=== PATIENT | female | born 1950 | race Caucasian/White ===

== ENCOUNTER 2022-09-01 16:55 | Emergency (ER) | payer MEDICARE, OTHER ==
[2022-09-01] MEDS ORDERED: Zofran 4 MG/2 ML VIAL IV ONE (17:12)
[2022-09-01] MEDS ORDERED: Sodium Chloride 0.9% 1000 ML 1,000 ML IV STA (17:12)
[2022-09-01] MEDS ORDERED: TYLENOL 325 MG PO STA (17:12)
--- NOTE | 2022-09-01 17:43 | ERPHSYRPT ---
- History of Present Illness Time Seen by Provider: 09/01/22 17:41 Source: patient, family Exam Limitations: no limitations Patient Subjective Stated Complaint: pt here for back and abd pain, chills and nausea. she is currently being treated for UTI . pt is a poor historian Triage Nursing Assessment: pt alert, resp easy, skin w/d/p, abd soft, Physician History: Patient is 72-year-old female with significant past medical history of recurrent urinary tract infection hyperlipidemia started having back pain fever chills nausea and vomiting for last 1 to 2 days. Patient has been recently being treated for urinary tract infection. Patient symptoms got worse so her family brought her into the emergency room. Patient denies any chest pain shortness of breath. Timing/Duration: day(s) (2-3 days) Severity: moderate Associated Symptoms: nausea, vomiting, abdominal pain Allergies/Adverse Reactions: VITAMIN K+ INJECTION Allergy (Mild, Uncoded 09/01/22 17:15) Swelling of Joints Home Medications: Fluoxetine HCl 20 mg [Prozac 20 MG] 20 mg PO BID 06/05/13 [History] Cholestyramine/Aspartame [Cholestyramine Light Packet] 4 gm PO DAILY 09/01/22 [History] Levothyroxine Sodium 100 Mcg [Synthroid 100 Mcg] 80 mcg PO DAILY 09/01/22 [History] Hx Tetanus, Diphtheria Vaccination/Date Given: No Hx Influenza Vaccination/Date Given: No Hx Pneumococcal Vaccination/Date Given: No Immunizations Up to Date: Yes Travel Risk - International Travel Have you traveled outside of the country in past 3 weeks: No - Coronavirus Screening Are you exhibiting any of the following symptoms?: No - Vaccine Status Have you recieved a Covid-19 vaccination: Yes Project Consultant: Moderna - Vaccination Dates Date of 2cond Vaccination (if applicable): 2020 - Review of Systems Constitutional: No Fever, No Chills Eyes: No Symptoms Ears, Nose, & Throat: No Symptoms Respiratory: No Cough, No Dyspnea Cardiac: No Chest Pain, No Edema, No Syncope Abdominal/Gastrointestinal: Abdominal Pain, Nausea, Vomiting, No Diarrhea Genitourinary Symptoms: Dysuria, Urgency Musculoskeletal: No Back Pain, No Neck Pain Skin: No Rash Neurological: No Dizziness, No Focal Weakness, No Sensory Changes Psychological: No Symptoms Endocrine: No Symptoms All Other Systems: Reviewed and Negative - Past Medical History Pertinent Past Medical History: Yes Neurological History: No Pertinent History ENT History: No Pertinent History Cardiac History: High Cholesterol Respiratory History: No Pertinent History Endocrine Medical History: Thyroid Cancer Musculoskeletal History: Arthritis GI Medical History: Hemorrhoids, Irritable Bowel History: No Pertinent History Psycho-Social History: Depression Female Reproductive Disorders: Fibroids - Past Surgical History Past Surgical History: Yes Neuro Surgical History: No Pertinent History Cardiac: No Pertinent History Respiratory: No Pertinent History Gastrointestinal: Appendectomy, Cholecystectomy, Hemorrhoidectomy, Hernia Repair Genitourinary: No Pertinent History Musculoskeletal: Joint Replacement, Other Female Surgical History: Hysterectomy Other Surgical History: thyroidectomy;. carpal tunnel. , LEFT KNEE REPLACEMENT, - Social History Smoking Status: Never smoker Exposure to second hand smoke: No Drug Use: none Patient Lives Alone: Yes - Nursing Vital Signs Nursing Vital Signs: Initial Vital Signs O2 Sat by Pulse Oximetry 93 L 09/01/22 17:45 Pain Scale Pain Intensity 5 - Physical Exam General Appearance: no apparent distress, alert Eye Exam: PERRL/EOMI, eyes nml inspection Ears, Nose, Throat Exam: normal ENT inspection, TMs normal, pharynx normal, moist mucous membranes Neck Exam: normal inspection, non-tender, supple, full range of motion Respiratory Exam: normal breath sounds, lungs clear, No respiratory distress Cardiovascular Exam: regular rate/rhythm, normal heart sounds, normal peripheral pulses Gastrointestinal/Abdomen Exam: soft, normal bowel sounds, No tenderness, No mass Back Exam: normal inspection, normal range of motion, No CVA tenderness, No vertebral tenderness Extremity Exam: normal inspection, normal range of motion, pelvis stable Neurologic Exam: alert, oriented x 3, cooperative, normal mood/affect, nml cerebellar function, nml station & gait, sensation nml, No motor deficits Skin Exam: normal color, warm, dry, No rash Lymphatic Exam: No adenopathy - Course Nursing assessment & vital signs reviewed: Yes - CT Exams Abdomen/Pelvis CT Interpretation: Tele-radiologist Report (obstructive 2 mm stone upper ureter, ) Ordered Tests: Active Orders 24 hr Category Date Time Status Stacker And Sorter Operator STAT Care 09/01/22 17:12 Active EKG-ER Only STAT Care 09/01/22 17:12 Active EKG-ER Only STAT Care 09/01/22 17:12 Active IV Insertion STAT Care 09/01/22 17:12 Active Pulse Oximetry (ED) STAT Care 09/01/22 17:12 Active ABDOMEN AND PELVIS W/0 CONTRAS [CT] Stat Exams 09/01/22 18:27 Taken CHEST 2 VIEWS (PA AND LAT) Stat Exams 09/01/22 17:12 Taken CBC W DIFF Stat Lab 09/01/22 17:40 Completed CMP Stat Lab 09/01/22 17:40 Completed CULTURE,URINE Stat Lab 09/01/22 18:53 Received PROCALCITONIN Stat Lab 09/01/22 17:40 Completed UA W/RFX UR CULTURE Stat Lab 09/01/22 18:53 Completed Medication Summary Discontinued Medications Generic Name Dose Route Start Last Admin Trade Name Freq PRN Reason Stop Dose Admin Acetaminophen 975 mg 09/01/22 17:12 09/01/22 18:04 Acetaminophen 325 Mg Tablet PO 09/01/22 17:13 975 mg STAT STA Administration Acetaminophen Confirm 09/01/22 17:54 Acetaminophen 325 Mg Tablet Administered 09/01/22 17:55 Dose 975 mg .ROUTE .STK-MED ONE Sodium Chloride 1,000 mls @ 999 mls/hr 09/01/22 17:12 09/01/22 19:38 Sodium Chloride 0.9% 1000 Ml IV 09/01/22 18:12 Infused .Q1H1M STA Infusion Sodium Chloride Confirm 09/01/22 17:54 Sodium Chloride 0.9% 1000 Ml Administered 09/01/22 17:55 Dose 1,000 mls @ ud .ROUTE .STK-MED ONE Ceftriaxone Sodium/Dextrose 1 g in 50 mls @ 100 mls/hr 09/01/22 18:26 09/01/22 19:38 Rocephin 1 Gm-D5w 50 Ml Bag IV 09/01/22 18:55 Infused STAT STA Infusion Ceftriaxone Sodium/Dextrose Confirm 09/01/22 18:53 Rocephin 1 Gm-D5w 50 Ml Bag Administered 09/01/22 18:54 Dose 1 g in 50 mls @ ud IV .STK-MED ONE Ondansetron HCl 4 mg 09/01/22 17:12 09/01/22 18:06 Ondansetron Hcl 4 Mg/2 Ml Vial IV 09/01/22 17:13 4 mg STAT ONE Administration Ondansetron HCl Confirm 09/01/22 17:54 Ondansetron Hcl 4 Mg/2 Ml Vial Administered 09/01/22 17:55 Dose 4 mg .ROUTE .K-MED ONE Lab/Rad Data: Laboratory Result Diagrams 09/01/22 17:40 09/01/22 17:40 Laboratory Results 09/01/22 09/01/22 09/01/22 Range/Units Unknown 18:53 17:40 WBC (4.0-10.5) x10^3/uL RBC (4.1-5.4) x10^6/uL Hgb (12.0-16.0) g/dL Hct (35-47) % MCV (78-100) fL MCH (26-32) pg MCHC (32-36) g/dL RDW (11.5-14.0) % Plt Count (150-450) x10^3/uL MPV (7.5-11.0) fL Gran % (36.0-66.0) % Immature Gran % (Auto) (0.00-0.4) % Nucleat RBC Rel Count (0.00-0.1) % Eos # (Auto) (0-0.5) x10^3/uL Immature Gran # (Auto) (0.00-0.03) x10^3u/L Absolute Lymphs (auto) (1.0-4.6) x10^3/uL Absolute Monos (auto) (0.0-1.3) x10^3/uL Absolute Nucleated RBC (0.00-0.01) x10^3u/L Lymphocytes % (24.0-44.0) % Monocytes % (0.0-12.0) % Eosinophils % (0.00-5.0) % Basophils % (0.0-0.4) % Absolute Granulocytes (1.4-6.9) x10^3/uL Basophils # (0-0.4) x10^3/uL Sodium (137-145) mmol/L Potassium (3.5-5.1) mmol/L Chloride (98-107) mmol/L Carbon Dioxide (22-30) mmol/L Anion Gap (5-15) MEQ/L BUN (7-17) mg/dL Creatinine (0.52-1.04) mg/dL Estimated GFR ML/MIN Glucose (74-106) mg/dL Hemoglobin A1c 5.83 (4.5-6.0) % Calcium (8.4-10.2) mg/dL Total Bilirubin (0.2-1.3) mg/dL AST (14-36) U/L ALT (0-35) U/L Alkaline Phosphatase (38-126) U/L Serum Total Protein (6.3-8.2) g/dL Albumin (3.5-5.0) g/dL Procalcitonin 9.750 H* (0.030-0.080) ng/mL Urine Color Yellow (Yellow) Urine Appearance Cloudy A (Clear) Urine pH 5.0 (4.6-8.0) Ur Specific [place] 1.015 (1.005-1.030) Urine Protein 30 (Negative) Urine Glucose (UA) Negative (Negative) mg/dL Urine Ketones Negative (Negative) Urine Blood Large A (Negative) Urine Nitrite Positive A (Negative) Urine Bilirubin Negative (Negative) Urine Urobilinogen 0.2 (0.2) mg/dL Ur Leukocyte Esterase Large A (Negative) U Hyaline Cast (Auto) NONE SEEN (0-2) /LPF Urine Microscopic RBC 0-2 (0-5) /HPF Urine Microscopic WBC 51-100 A (0-5) /HPF Ur Epithelial Cells Rare (None Seen) /HPF Urine Bacteria Many A (None Seen) /HPF Urine Culture Reflexed YES (NO) 09/01/22 09/01/22 Range/Units 17:40 17:40 WBC 9.2 (4.0-10.5) x10^3/uL RBC 4.17 (4.1-5.4) x10^6/uL Hgb 13.9 (12.0-16.0) g/dL Hct 42.5 (35-47) % MCV 101.9 H (78-100) fL MCH 33.3 H (26-32) pg MCHC 32.7 (32-36) g/dL RDW 13.5 (11.5-14.0) % Plt Count 207 (150-450) x10^3/uL MPV 9.0 (7.5-11.0) fL Gran % 92.7 H (36.0-66.0) % Immature Gran % (Auto) 0.5 H (0.00-0.4) % Nucleat RBC Rel Count 0.0 (0.00-0.1) % Eos # (Auto) 0.04 (0-0.5) x10^3/uL Immature Gran # (Auto) 0.05 H (0.00-0.03) x10^3u/L Absolute Lymphs (auto) 0.34 L (1.0-4.6) x10^3/uL Absolute Monos (auto) 0.23 (0.0-1.3) x10^3/uL Absolute Nucleated RBC 0.00 (0.00-0.01) x10^3u/L Lymphocytes % 3.7 L (24.0-44.0) % Monocytes % 2.5 (0.0-12.0) % Eosinophils % 0.4 (0.00-5.0) % Basophils % 0.2 (0.0-0.4) % Absolute Granulocytes 8.52 H (1.4-6.9) x10^3/uL Basophils # 0.02 (0-0.4) x10^3/uL Sodium 140 (137-145) mmol/L Potassium 3.4 L (3.5-5.1) mmol/L Chloride 109 H (98-107) mmol/L Carbon Dioxide 20 L (22-30) mmol/L Anion Gap 14.6 (5-15) MEQ/L BUN 13 (7-17) mg/dL Creatinine 0.66 (0.52-1.04) mg/dL Estimated GFR > 60.0 ML/MIN Glucose 202 H (74-106) mg/dL Hemoglobin A1c (4.5-6.0) % Calcium 8.9 (8.4-10.2) mg/dL Total Bilirubin 1.50 H (0.2-1.3) mg/dL AST 34 (14-36) U/L ALT 27 (0-35) U/L Alkaline Phosphatase 125 (38-126) U/L Serum Total Protein 6.7 (6.3-8.2) g/dL Albumin 3.9 (3.5-5.0) g/dL Procalcitonin (0.030-0.080) ng/mL Urine Color (Yellow) Urine Appearance (Clear) Urine pH (4.6-8.0) Ur Specific [place] (1.005-1.030) Urine Protein (Negative) Urine Glucose (UA) (Negative) mg/dL Urine Ketones (Negative) Urine Blood (Negative) Urine Nitrite (Negative) Urine Bilirubin (Negative) Urine Urobilinogen (0.2) mg/dL Ur Leukocyte Esterase (Negative) U Hyaline Cast (Auto) (0-2) /LPF Urine Microscopic RBC (0-5) /HPF Urine Microscopic WBC (0-5) /HPF Ur Epithelial Cells (None Seen) /HPF Urine Bacteria (None Seen) /HPF Urine Culture Reflexed (NO) - Progress Progress: improved Counseled pt/family regarding: lab results, diagnosis, need for follow-up, rad results Medical Desision Making - Discussion of managment Reviewed:: Test results, Need for additional workup Agreed on:: Treatment plan, need for follow-up - Diagnostic Testing Diagnostic test were ordered, analyzed, and reviewed by me: Yes Radiological Interpretation: Interpreted by me, Reviewed by me, Teleradiologist Report - Risk of complications Low Risk: Low risk of morbidity from additional dx testing or treatment The pt has a mod risk of morbidity or mortality based on: Need for prescription drug management The pt has a high risk of morbidity or mortality based on: Drug therapy requiring intensive monitoring for toxicity - Departure Departure Disposition: Home Clinical Impression: Pyelonephritis due to Escherichia coli, Renal calculus or stone, Right renal stone Condition: Stable Critical Care Time: Yes Critical Care Time(excluding separately billable procedures): Critical 75-104 mins Referrals: MUSA POLANCO SHUTDOWN COORDINATOR [Primary Care Provider] - Follow up/PCP as directed Instructions: Urinary Tract Infection, Adult (DC), Kidney Stones (DC), Kidney Stone Diet Additional Instructions: Discharge/Care Plan PORTILLO OLIVAS was seen on 09/01/22 in the Emergency Room. The patient was counseled regarding Diagnosis,Lab results, Imaging studies, need for follow up and when to return to the Emergency Room. Prescriptions given: Discharge Note I have spoken with the patient and/or caregivers. I have explained the patient's condition, diagnosis and treatment plan based on the information available to me at this time. I have answered the patient's and/or caregiver's questions and addressed any concerns. The patient and/or caregivers have as good understanding of the patient's diagnosis, condition and treatment plan as can be expected at this point. The vital signs have been stable. The patient's condition is stable and appropriate for discharge from the emergency department. The patient will pursue further outpatient evaluation with the primary care physician or other designated or consulting physician as outlined in the discharge instructions. The patient and/or caregivers are agreeable to this plan of care and follow-up instructions have been explained in detail. The patient and/or caregivers have received these instruction. The patient/and or caregivers are aware that any significant change in condition or worsening of symptoms should prompt an immediate return to this or the closest emergency department or call 911. PORTILLO OLIVASAINE was seen on 09/01/22 n the Emergency Room. At that time you were treated for an emergent condition, during your visit Laboratory, Radiology and/or other procedures may have been ordered. It is very important that you follow-up with your Primary Care Physician MUSA POLANCO within the next 24-48 hours to review your Emergency Room visit and the final results of testing that was ordered. Some test results such as Urine Cultures, Blood Cultures, and other cultures if ordered will not be finalized for 24-48 hours. If you do not have a Primary Care Provider please call the medical records department at [phone] ext [phone] to obtain a copy of your results or you may sign into our patient portal to obtain these results by visiting us @ [email or web address] and completing the following steps: 1. Click on the Patient Portal link 2. Click the Patient Self Enrollment Link to complete the enrollment form and entering your 3. Once the enrollment form is completed you will receive an email with a temporary ID and password at the email address you provided. 4. Next choose a user name and password. Your user name must be at least 4 ch aracters long and your password must be at least 4 characters long. 5. Choose a security question from the list and provide your answer to the question. If you already have signed into the Health Portal you may access your Health Care Information 07/01 by the following steps: 1. Login to our website @ [email or web address] 2. Enter your original user name and password. FAQS The [facility] Health Portal is an online tool that contains your Lab Results, Radiology Reports, Visit History, Discharge Instructions and Health Summary Lab and Radiology Results will not be available for 72 hours on the portal. The Portal is a secure site, passwords are encryted and URLs are re-written so they cannot be copied and pasted. You and authorized family members are the only ones who can access your Portal. Also there is a timeout feature that protects your information if you leave the Portal page open. If you have technical difficulty please use the Contact Us link on the page this will allow you to submit any questions you have regarding the Portal or you may contact the Medical Record Department at [phone]. Prescriptions: Ciprofloxacin [Cipro 500 MG] 500 mg PO BIDAC #20 tablet Tamsulosin HCl 0.4 mg [Flomax 0.4 MG] 0.4 mg PO DAILY #15 cap
[2022-09-01 17:45] LABS: Absolute Neutrophil Ct (ANC) 8.52 x10^3/uL (1.4-6.9); BASOPHIL % 0.2 % (0.0-0.4); Basophil (Absolute #) 0.02 x10^3/uL (0-0.4); Eosinophil % 0.4 % (0.00-5.0); Eosinophil (Absolute #) 0.04 x10^3/uL (0-0.5); Hematocrit 42.5 % (35-47); Hemoglobin 13.9 g/dL (12.0-16.0); IMMATURE GRAN # 0.05 x10^3u/L (0.00-0.03); IMMATURE GRAN % 0.5 % (0.00-0.4); Lymphocyte (Absolute #) 0.34 x10^3/uL (1.0-4.6); Lymphocytes % 3.7 % (24.0-44.0); Mean Cell Volume 101.9 fL (78-100); Mean Corpuscular Hemoglobin 33.3 pg (26-32); Mean Corpuscular Hgb Concent. 32.7 g/dL (32-36); Monocyte (Absolute #) 0.23 x10^3/uL (0.0-1.3); Monocytes % 2.5 % (0.0-12.0); Neutrophil % 92.7 % (36.0-66.0); Platelet Count 207 x10^3/uL (150-450); Red Blood Count 4.17 x10^6/uL (4.1-5.4); Red Cell Distribution Width 13.5 % (11.5-14.0); White Blood Count 9.2 x10^3/uL (4.0-10.5)
[2022-09-01] MEDS ORDERED: Zofran 4 MG/2 ML VIAL ONE (17:54)
[2022-09-01] MEDS ORDERED: Sodium Chloride 0.9% 1000 ML 1,000 ML ONE (17:54)
[2022-09-01] MEDS ORDERED: TYLENOL 325 MG ONE (17:54)
[2022-09-01 17:58] LABS: ALBUMIN 3.9 g/dL (3.5-5.0); ALKALINE PHOSPHATASE 125 U/L (38-126); ANION GAP 14.6 MEQ/L (5-15); BLOOD UREA NITROGEN 13 mg/dL (7-17); CHLORIDE 109 mmol/L (98-107); Calcium 8.9 mg/dL (8.4-10.2); Carbon Dioxide 20 mmol/L (22-30); Creatinine 1 0.66 mg/dL (0.52-1.04); EST GLOMERULAR FILTRATION RATE > 60.0 ML/MIN; Glucose 202 mg/dL (74-106); Potassium 3.4 mmol/L (3.5-5.1); SGOT/AST 34 U/L (14-36); SGPT/ALT 27 U/L (0-35); SODIUM 140 mmol/L (137-145); Total Protein 6.7 g/dL (6.3-8.2)
[2022-09-01] MEDS ORDERED: ROCEPHIN 1 Gm-D5w 50 ml Bag** 1 G/50 ML IVPB IV STA (18:26)
[2022-09-01] MEDS ORDERED: ROCEPHIN 1 Gm-D5w 50 ml Bag** 1 G/50 ML IVPB IV ONE (18:53)
[2022-09-01 19:34] LABS: Appearance Cloudy (Clear); Bacteria Many /HPF (None Seen); Bilirubin Negative (Negative); Blood Large (Negative); Glucose, Urine Negative (Negative); Hyaline Casts NONE SEEN /LPF (0-2); Ketones Negative (Negative); Leukocyte Esterase Large (Negative); Nitrite Positive (Negative); Protein,Urine Dip 30 (Negative); RBC 0-2 /HPF (0-5); Specific Gravity 1.015 (1.005-1.030); Urobilinogen 0.2 mg/dL (0.2)
[2022-09-01 19:35] LABS: ADD URINE CULTURE? YES (NO); Epithelial Cells Rare /HPF (None Seen); WBC 51-100 /HPF (0-5)
[2022-09-01 19:58] LABS: Slide Review 1 YES
[2022-09-01 20:18] VITALS: BP 117/69; PULSE 102; O2SAT 94
--- NOTE | 2022-09-01 20:46 | XRAY ---
Indication: Abdomen pain and nausea. History kidney stones. Multiple contiguous axial images obtained through the abdomen and pelvis without contrast. Comparison: October 25, 2018 Lung bases clear. Heart not enlarged. Stable small hiatal hernia. Again gastric bypass surgery, appendectomy, cholecystotomy, and hysterectomy. Noncontrasted stomach and bowel loops appear nonobstructed. Again multiple bilateral renal micro-calculi with new 2-3 mm proximal right ureter calculus, approximately L4 level. Minimal right hydronephrosis consistent with partial obstructive uropathy. No free fluid/air. Again mild diffuse fatty liver. Remaining liver, pancreas, spleen, adrenal glands, kidneys, ureters, and bladder are unremarkable for noncontrast exam. Again mild aortoiliac calcifications without AAA. Osseous structures intact again with osteopenia, mild/moderate multilevel thoracolumbar degenerative spondylosis, grade 1 L4 spondylolisthesis, and moderate degenerative changes both hips. Grossly stable multifocal midline fatty ventral hernias. Impression: 1. New 2-3 mm proximal right ureter calculus producing partial obstructive uropathy. Again multiple bilateral renal micro-calculi. 2. Chronic findings including small hiatal hernia, fatty liver, chronic bony findings, arteriosclerotic disease, and fatty ventral hernias. Comment: Preliminary interpretation made by [facility]. No critical discrepancy.
--- NOTE | 2022-09-01 20:46 | XRAY ---
Indication: Fever and chills. Comparison: August 05, 2015 PA/lateral chest inflated and clear. Heart and mediastinal structures within normal limits. Bony thorax intact with osteopenia, mild degenerative changes, and minimal double curvature scoliosis. Impression: Continued nonacute chest with chronic features.
== END 2022-09-01 20:18 | disposition home or self-care (01) ==
LOC: ED 16:55
DX: N10 Acute pyelonephritis (principal); B96.20 Unspecified Escherichia coli [E. coli] as the cause of diseases classified elsewhere; N20.0 Calculus of kidney; R50.9 Fever, unspecified; M54.9 Dorsalgia, unspecified; R11.2 Nausea with vomiting, unspecified; E78.5 Hyperlipidemia, unspecified; Z79.899 Other long term (current) drug therapy
CPT/HCPCS: 36000; 36415; 71046; 74176; 80053; 81001; 83036; 84145; 85025; 87077; 87086; 87186; 93005; 93041; 94760; 96360; 96365; 96374; 99284; 99291; 99292; J0696; J2405; A9270-GY

== ENCOUNTER 2023-04-30 14:16 | Observation (INO) | payer MEDICARE, OTHER ==
[2023-04-30 14:32] LABS: Absolute Neutrophil Ct (ANC) 3.97 x10^3/uL (1.4-6.9); BASOPHIL % 0.5 % (0.0-0.4); Basophil (Absolute #) 0.03 x10^3/uL (0-0.4); Eosinophil % 4.4 % (0.00-5.0); Eosinophil (Absolute #) 0.27 x10^3/uL (0-0.5); Hematocrit 39.3 % (35-47); Hemoglobin 12.5 g/dL (12.0-16.0); IMMATURE GRAN # 0.01 x10^3u/L (0.00-0.03); IMMATURE GRAN % 0.2 % (0.00-0.4); Lymphocyte (Absolute #) 1.47 x10^3/uL (1.0-4.6); Lymphocytes % 23.8 % (24.0-44.0); Mean Cell Volume 98.3 fL (78-100); Mean Corpuscular Hemoglobin 31.3 pg (26-32); Mean Corpuscular Hgb Concent. 31.8 g/dL (32-36); Monocyte (Absolute #) 0.43 x10^3/uL (0.0-1.3); Neutrophil % 64.1 % (36.0-66.0); Platelet Count 249 x10^3/uL (150-450); Red Cell Distribution Width 14.4 % (11.5-14.0); White Blood Count 6.2 x10^3/uL (4.0-10.5)
[2023-04-30 14:48] LABS: ALBUMIN 4.1 g/dL (3.5-5.0); ANION GAP 10.3 MEQ/L (5-15); BILIRUBIN,TOTAL 0.9 mg/dL (0.2-1.3); Calcium 9.6 mg/dL (8.4-10.2); Creatinine 1 0.78 mg/dL (0.52-1.04); EST GLOMERULAR FILTRATION RATE 79.7 ML/MIN; Potassium 3.7 mmol/L (3.5-5.1); Total Protein 7.2 g/dL (6.3-8.2)
--- NOTE | 2023-04-30 15:11 | ERPHSYRPT ---
- History of Present Illness Time Seen by Provider: 04/30/23 14:30 Source: patient Exam Limitations: no limitations Patient Subjective Stated Complaint: Swelling- Right leg Triage Nursing Assessment: Patient ambulated back to ED and transferred self to bed. Patient A+O X3. Patient's skin pink, warm and dry. Patient was seen by Dr. Cordero today for LLE swelling. Patient had outpatient Ultrasound to Left leg. Patient has solid clot noted from common femeral to posterior tibia. Patient danny pain or discomfort, SOB, N/V. Patient sent over to rule out PE. Physician History: 73-year-old female presents to our ED as a referral from her primary care doctors office specifically for a CTA of the chest. Patient was found to have a right lower extremity extensive DVT. Patient was sent to our ED for CTA chest to rule out PE as patient has also been experiencing some fatigue/shortness of breath. Patient has no pain or shortness of breath at rest. No chest pain or shortness of breath. No nausea vomiting or diaphoresis. Patient reports that she had a right total knee replacement in October. Since then she has had swelling of her leg. Patient had a blood clot approximately 55 years ago per patient. Patient's mother also has a history of blood clot. Patient otherwise feels well. She voices no other complaints or concerns at this time. Portions of this note were created with voice recognition technology. There may be grammatical, spelling, punctuation or sound alike errors Timing/Duration: today Severity: moderate Modifying Factors: Improves With: nothing Associated Symptoms: other (Fatigue shortness of breath) Allergies/Adverse Reactions: VITAMIN K+ INJECTION Allergy (Mild, Uncoded 04/30/23 14:22) Swelling of Joints Home Medications: Fluoxetine HCl 20 mg [Prozac 20 MG] 20 mg PO BID 06/05/13 [History] Cholestyramine/Aspartame [Cholestyramine Light Packet] 4 gm PO DAILY 09/01/22 [History] Levothyroxine Sodium 100 Mcg [Synthroid 100 Mcg] 80 mcg PO DAILY 09/01/22 [History] Gabapentin 600 mg PO TID PRN 04/30/23 [History] Hx Tetanus, Diphtheria Vaccination/Date Given: No Hx Influenza Vaccination/Date Given: No Hx Pneumococcal Vaccination/Date Given: No Immunizations Up to Date: Yes Travel Risk - International Travel Have you traveled outside of the country in past 3 weeks: No - Coronavirus Screening Are you exhibiting any of the following symptoms?: No Close contact with a COVID-19 positive Pt in past 14-21 Days: No - Vaccine Status Have you recieved a Covid-19 vaccination: Yes Web [employer]: Moderna - Vaccination Dates Date of 2cond Vaccination (if applicable): 2020 - Review of Systems Constitutional: No Symptoms, No Fever, No Chills Eyes: No Symptoms Ears, Nose, & Throat: No Symptoms Respiratory: No Symptoms, No Cough, No Dyspnea Cardiac: No Symptoms, No Chest Pain, No Edema, No Syncope Abdominal/Gastrointestinal: No Symptoms, No Abdominal Pain, No Nausea, No Vomiting, No Diarrhea Genitourinary Symptoms: No Symptoms, No Dysuria Musculoskeletal: No Symptoms, No Back Pain, No Neck Pain Skin: No Symptoms, No Rash Neurological: No Symptoms, No Dizziness, No Focal Weakness, No Sensory Changes Psychological: No Symptoms Endocrine: No Symptoms Hematologic/Lymphatic: No Symptoms Immunological/Allergic: No Symptoms All Other Systems: Reviewed and Negative - Past Medical History Pertinent Past Medical History: Yes Neurological History: Peripheral Neuropathy ENT History: No Pertinent History Cardiac History: No Pertinent History Respiratory History: No Pertinent History Endocrine Medical History: Thyroid Cancer Musculoskeletal History: Arthritis GI Medical History: Hemorrhoids, Irritable Bowel History: No Pertinent History Psycho-Social History: Depression Female Reproductive Disorders: Fibroids - Past Surgical History Past Surgical History: Yes Neuro Surgical History: No Pertinent History Cardiac: No Pertinent History Respiratory: No Pertinent History Gastrointestinal: Appendectomy, Cholecystectomy, Hemorrhoidectomy, Hernia Repair Genitourinary: No Pertinent History Musculoskeletal: Joint Replacement, Other Female Surgical History: Hysterectomy Other Surgical History: thyroidectomy;. carpal tunnel. , LEFT KNEE REPLACEMENT, - Social History Smoking Status: Never smoker Exposure to second hand smoke: No Drug Use: none Patient Lives Alone: Yes - Nursing Vital Signs Nursing Vital Signs: Initial Vital Signs Temperature 97.3 F 04/30/23 14:25 Pulse Rate 80 04/30/23 14:25 Respiratory Rate 20 04/30/23 14:25 Blood Pressure 196/96 04/30/23 14:25 O2 Sat by Pulse Oximetry 95 04/30/23 14:25 Pain Scale Pain Intensity 0 - Physical Exam General Appearance: no apparent distress, alert Eye Exam: PERRL/EOMI, eyes nml inspection Ears, Nose, Throat Exam: normal ENT inspection, TMs normal, pharynx normal, moist mucous membranes Neck Exam: normal inspection, non-tender, supple, full range of motion Respiratory Exam: normal breath sounds, lungs clear, No respiratory distress Cardiovascular Exam: regular rate/rhythm, normal heart sounds, normal peripheral pulses Gastrointestinal/Abdomen Exam: soft, normal bowel sounds, No tenderness, No mass Back Exam: normal inspection, normal range of motion, No CVA tenderness, No vertebral tenderness Extremity Exam: normal inspection, normal range of motion, pelvis stable Neurologic Exam: alert, oriented x 3, cooperative, normal mood/affect, nml cerebellar function, nml station & gait, sensation nml, No motor deficits Skin Exam: normal color, warm, dry, No rash Lymphatic Exam: No adenopathy SpO2 Interpretation: normal SpO2: 95 O2 Delivery: Room Air - Course Nursing assessment & vital signs reviewed: Yes EKG Interpreted by Me: RATE (89), Sinus Rhythm, NORMAL AXIS, NORMAL INTERVALS - CT Exams Chest CT Interpretation: Tele-radiologist Report (Bilateral nonoccluding pulmonary emboli right greater than left) - Radiology Ultrasound Exam Venous Lower Extremity Ultrasound: tele radiology report (Including a nonoccluding DVTs scattered throughout the visualized common femoral deep femoral femoral popliteal and posterior tibial veins this ultrasound was performed on an outpatient basis per Dr. Cordero just prior to arrival to our ED) Ordered Tests: Active Orders 24 hr Category Date Time Status IV Insertion STAT Care 04/30/23 14:29 Active CHEST WITH CONTRAST [CT] Stat Exams 04/30/23 14:21 Completed CBC Q48H Lab 05/01/23 06:00 Ordered CBC Q48H Lab 05/03/23 06:00 Ordered CBC Q48H Lab 05/05/23 06:00 Ordered CBC Q48H Lab 05/07/23 06:00 Ordered CBC Q48H Lab 05/09/23 06:00 Ordered CBC Q48H Lab 05/11/23 06:00 Ordered CBC Q48H Lab 05/13/23 06:00 Ordered CBC W DIFF Stat Lab 04/30/23 14:25 Completed CMP Stat Lab 04/30/23 14:25 Completed NT PRO BNPII Stat Lab 04/30/23 17:10 Completed PROTIME WITH INR Stat Lab 04/30/23 14:25 Completed PTT Q4H Lab 04/30/23 17:10 Received PTT Q4H Lab 04/30/23 21:00 Ordered PTT Q4H Lab 05/01/23 01:00 Ordered PTT Q4H Lab 05/01/23 05:00 Ordered PTT Q4H Lab 05/01/23 09:00 Ordered PTT Q4H Lab 05/01/23 13:00 Ordered PTT Q4H Lab 05/01/23 17:00 Ordered PTT Q4H Lab 05/01/23 21:00 Ordered PTT Q4H Lab 05/02/23 01:00 Ordered PTT Q4H Lab 05/02/23 05:00 Ordered PTT Q4H Lab 05/02/23 09:00 Ordered PTT Q4H Lab 05/02/23 13:00 Ordered PTT Stat Lab 04/30/23 14:25 Completed TROPONIN Q4H Lab 04/30/23 17:10 Completed TROPONIN Q4H Lab 04/30/23 20:45 Ordered TROPONIN Q4H Lab 05/01/23 00:45 Ordered Transfer Order Routine Transfer 04/30/23 Ordered Medication Summary Generic Name Dose Route Start Last Admin Trade Name Freq PRN Reason Stop Dose Admin Heparin Sodium/Dextrose 25,000 units in 250 mls @ 12.36 mls/hr 04/30/23 17:00 04/30/23 16:52 Heparin 25,000 Units/D5w: Use Order Set Fay IV 05/30/23 16:59 12 units/kg/hr .[id number] JENNIFER 12.36 mls/hr Administration Protocol 12 UNITS/KG/HR Discontinued Medications Generic Name Dose Route Start Last Admin Trade Name Freq PRN Reason Stop Dose Admin Heparin Sodium (Beef Lung) 5,001 unit 04/30/23 16:44 04/30/23 16:51 Heparin 5000 Units/0.5 Ml 5,000 Unit/0.5 Ml Syr IV 04/30/23 16:45 5,000 unit STAT STA Administration Heparin Sodium (Beef Lung) Confirm 04/30/23 16:50 Heparin 5000 Units/0.5 Ml 5,000 Unit/0.5 Ml Syr Administered 04/30/23 16:51 Dose 5,000 unit .ROUTE .STK-MED ONE Lab/Rad Data: Laboratory Result Diagrams 04/30/23 14:25 04/30/23 14:25 Laboratory Results 04/30/23 04/30/23 04/30/23 Range/Units 17:10 17:10 14:25 WBC (4.0-10.5) x10^3/uL RBC (4.1-5.4) x10^6/uL Hgb (12.0-16.0) g/dL Hct (35-47) % MCV (78-100) fL MCH (26-32) pg MCHC (32-36) g/dL RDW (11.5-14.0) % Plt Count (150-450) x10^3/uL MPV (7.5-11.0) fL Gran % (36.0-66.0) % Immature Gran % (Auto) (0.00-0.4) % Nucleat RBC Rel Count (0.00-0.1) % Eos # (Auto) (0-0.5) x10^3/uL Immature Gran # (Auto) (0.00-0.03) x10^3u/L Absolute Lymphs (auto) (1.0-4.6) x10^3/uL Absolute Monos (auto) (0.0-1.3) x10^3/uL Absolute Nucleated RBC (0.00-0.01) x10^3u/L Lymphocytes % (24.0-44.0) % Monocytes % (0.0-12.0) % Eosinophils % (0.00-5.0) % Basophils % (0.0-0.4) % Absolute Granulocytes (1.4-6.9) x10^3/uL Basophils # (0-0.4) x10^3/uL PT 10.6 (9.4-12.5) SECONDS INR 0.97 (0.8-3.0) APTT 26.2 (25.1-36.5) SECONDS Sodium (137-145) mmol/L Potassium (3.5-5.1) mmol/L Chloride (98-107) mmol/L Carbon Dioxide (22-30) mmol/L Anion Gap (5-15) MEQ/L BUN (7-17) mg/dL Creatinine (0.52-1.04) mg/dL Estimated GFR ML/MIN Glucose (74-106) mg/dL Calcium (8.4-10.2) mg/dL Total Bilirubin (0.2-1.3) mg/dL AST (14-36) U/L ALT (0-35) U/L Alkaline Phosphatase (38-126) U/L Troponin I < 0.012 (0.000-0.034) ng/mL NT-Pro-B Natriuret Pep 340 (<300) pg/mL Serum Total Protein (6.3-8.2) g/dL Albumin (3.5-5.0) g/dL 04/30/23 04/30/23 Range/Units 14:25 14:25 WBC 6.2 (4.0-10.5) x10^3/uL RBC 4.00 L (4.1-5.4) x10^6/uL Hgb 12.5 (12.0-16.0) g/dL Hct 39.3 (35-47) % MCV 98.3 (78-100) fL MCH 31.3 (26-32) pg MCHC 31.8 L (32-36) g/dL RDW 14.4 H (11.5-14.0) % Plt Count 249 (150-450) x10^3/uL MPV 9.0 (7.5-11.0) fL Gran % 64.1 (36.0-66.0) % Immature Gran % (Auto) 0.2 (0.00-0.4) % Nucleat RBC Rel Count 0.0 (0.00-0.1) % Eos # (Auto) 0.27 (0-0.5) x10^3/uL Immature Gran # (Auto) 0.01 (0.00-0.03) x10^3u/L Absolute Lymphs (auto) 1.47 (1.0-4.6) x10^3/uL Absolute Monos (auto) 0.43 (0.0-1.3) x10^3/uL Absolute Nucleated RBC 0.00 (0.00-0.01) x10^3u/L Lymphocytes % 23.8 L (24.0-44.0) % Monocytes % 7.0 (0.0-12.0) % Eosinophils % 4.4 (0.00-5.0) % Basophils % 0.5 (0.0-0.4) % Absolute Granulocytes 3.97 (1.4-6.9) x10^3/uL Basophils # 0.03 (0-0.4) x10^3/uL PT (9.4-12.5) SECONDS INR (0.8-3.0) APTT (25.1-36.5) SECONDS Sodium 141 (137-145) mmol/L Potassium 3.7 (3.5-5.1) mmol/L Chloride 107 (98-107) mmol/L Carbon Dioxide 28 (22-30) mmol/L Anion Gap 10.3 (5-15) MEQ/L BUN 12 (7-17) mg/dL Creatinine 0.78 (0.52-1.04) mg/dL Estimated GFR 79.7 ML/MIN Glucose 132 H (74-106) mg/dL Calcium 9.6 (8.4-10.2) mg/dL Total Bilirubin 0.90 (0.2-1.3) mg/dL AST 21 (14-36) U/L ALT 23 (0-35) U/L Alkaline Phosphatase 103 (38-126) U/L Troponin I (0.000-0.034) ng/mL NT-Pro-B Natriuret Pep (<300) pg/mL Serum Total Protein 7.2 (6.3-8.2) g/dL Albumin 4.1 (3.5-5.0) g/dL - Progress Progress: improved Progress Note: Case discussed with Yaw Finn at 4:45 PM. He requests results of troponin and BNP before admission. Testing currently pending 04/30/23 16:[address] Finn. Troponin negative. BNP within normal limits. Patient currently on heparin drip 04/30/23 18:02 73-year-old female referred to our ED from Dr. Cordero's office. Patient diagnosed with a lower extremity DVT. Patient sent to our ED for PE study. PE study reveals bilateral nonoccluding PE. Patient will be admitted for anticoagulation. Heparin drip initiated. Plan of care discussed with patient. She agrees to admission to [facility] for further evaluation and treatment. 04/30/23 18:06 Complexity of problems addressed is high, threat to bodily function as patient has DVT and bilateral pulmonary emboli Critical care is 2 hours. Patient has embolic disease requiring anticoagulation monitoring in ICU setting. Complex of data reviewed and analyzed is extensive. Test ordered test reviewed. Results analyzed and clinically correlated. Management discussed with hospitalist who agrees to admission at [facility] for further evaluation and treatment. Patient agrees to admission to [facility] for further evaluation and treatment. Risk of complication and or risk morbidity/mortality of patient management is high. Patient requires hospitalization for further evaluation and treatment. Vital stable. Time spent admit patient approximately 20 minutes. Plan of care established for shared decision making. Portions of this note were created with voice recognition technology. There may be grammatical, spelling, punctuation or sound alike errors 04/30/23 18:10 Discussed with DrCinthia: John (4:45 PM) Counseled pt/family regarding: lab results, diagnosis, rad results - Departure Departure Disposition: Observation Clinical Impression: Pulmonary embolus, DVT (deep venous thrombosis), Fatigue Condition: Stable Critical Care Time: No Critical Care Time(excluding separately billable procedures): Critical 105-134 mins Referrals: MUSA POLANCO NP [Primary Care Provider] - Follow up/PCP as directed
--- NOTE | 2023-04-30 16:27 | XRAY ---
Indication: Short of breath. DVT. Multiple contiguous axial images obtained through the chest using 80 cc Isovue 370 contrast and PE protocol. Comparison: None Good opacification of the pulmonary arteries including lobar and segmental branches. Distal right main pulmonary artery demonstrates nonoccluding emboli extending into all lobar branches. Lesser nonoccluding tiny emboli seen in segmental branches of the left upper and left lower lobes. Heart not enlarged. Aorta is normal in course and caliber. No pathologic mediastinal/hilar lymphadenopathy. Lungs demonstrates minimal inferior lingula subsegmental atelectasis/scarring. No suspicious pulmonary mass/nodule, infiltrate, effusion, or pneumothorax. Bony thorax intact with osteopenia and mild/moderate degenerative changes throughout the spine. Limited upper abdomen demonstrates fatty liver. Impression: 1. Nonoccluding bilateral pulmonary emboli, right greater than left. No distal infarct. 2. Incidental lingula atelectasis/scarring, chronic bony findings, and fatty liver.
[2023-04-30] MEDS ORDERED: HEPARIN 5000 UNITS/0.5 ML (HIGH RISK MED) IV STA (16:44)
[2023-04-30] MEDS ORDERED: HEPARIN 5000 UNITS/0.5 ML (HIGH RISK MED) ONE (16:50)
[2023-04-30] MEDS ORDERED: Heparin 25,000 units/D5W: USE ORDER SET PROTO 25,000 UNITS/250 ML BAG IV SCH (17:00)
[2023-04-30 17:06] LABS: INR 0.97 (0.8-3.0); PROTIME 10.6 SECONDS (9.4-12.5); PTT 26.2 SECONDS (25.1-36.5)
[2023-04-30] MEDS ORDERED: NORVASC 5 MG PO ONE (19:39)
[2023-04-30 20:05] LABS: ADD URINE CULTURE? YES (NO); Appearance Clear (Clear); Bacteria Few /HPF (None Seen); Bilirubin Negative (Negative); Blood Moderate (Negative); Epithelial Cells None Seen /HPF (None Seen); Glucose, Urine Negative (Negative); Hyaline Casts NONE SEEN /LPF (0-2); Ketones Negative (Negative); Leukocyte Esterase Moderate (Negative); Nitrite Positive (Negative); Protein,Urine Dip Negative (Negative); RBC 21-50 /HPF (0-5); Urobilinogen 0.2 mg/dL (0.2); WBC 51-100 /HPF (0-5)
[2023-04-30] MEDS ORDERED: Docusate Sodium 100 MG PO PRN (20:47)
[2023-04-30] MEDS ORDERED: APRESOLINE 20 MG/ML INJ IV PRN (20:48)
--- NOTE | 2023-04-30 20:54 | PCM.HP ---
History of Present Illness - Chief Complaint Chief Complaint: Pulmonary Embolus History of Present Illness: 73 yo wf with hx of MDD, OA s/p TKR presented with fatigue and increased sob/RLE swelling. Pt states she had TKR on right knee in october. Since October her leg has been swollen. She has also noticed since that time she has been sleeping alot. The knee has been Xrayed on 2 occasions but no US done. She noted extreme fatigue the last 3 days. She denies fevers and chills but had some chest pain earlier in the week. She was urged to go to the doctor by her family and sent to the ED. CTA showed PE. US apparently done as well which showed RLE extensive DVT. Now on heparin gtt. - Review of Systems Constitutional: Fatigue, No Fever, No Chills Eyes: No Symptoms Ears, Nose, & Throat: No Symptoms Respiratory: Short Of Breath Cardiac: Chest Pain Abdominal/Gastrointestinal: No Symptoms Genitourinary Symptoms: No Symptoms Musculoskeletal: No Symptoms Neurological: No Symptoms Psychological: No Symptoms Endocrine: No Symptoms Hematologic/Lymphatic: Blood Clots Immunological/Allergic: No Symptoms Medications & Allergies Home Medications: Home Medication List Fluoxetine HCl 20 mg [Prozac 20 MG] 20 mg PO BID 06/05/13 [History Confirmed 04/30/23] Cholestyramine/Aspartame [Cholestyramine Light Packet] 4 gm PO DAILY 09/01/22 [History Confirmed 04/30/23] Levothyroxine Sodium 100 Mcg [Synthroid 100 Mcg] 80 mcg PO DAILY 09/01/22 [History Confirmed 04/30/23] Gabapentin 300 mg PO HS 04/30/23 [History Confirmed 04/30/23] Gabapentin 600 mg PO TID PRN 04/30/23 [History Confirmed 04/30/23] Allergies/Adverse Reactions: Allergies Allergy/AdvReac Type Severity Reaction Status Date / Time VITAMIN K+ INJECTION Allergy Mild Swelling Uncoded 04/30/23 14:22 of Joints - Past Medical History Past Medical History: Yes Neurological History: Peripheral Neuropathy ENT History: No Pertinent History Cardiac History: No Pertinent History Respiratory History: No Pertinent History Endocrine Medical History: Thyroid Cancer Musculoskelatal History: Arthritis GI Medical History: Hemorrhoids, Irritable Bowel History: No Pertinent History Pyscho-Social History: Depression Reproductive Disorders: Fibroids - Female History Are you now?: No - Past Surgical History Past Surgical History: Yes Neuro Surgical History: No Pertinent History Cardiac History: No Pertinent History Respiratory Surgery: No Pertinent History GI Surgical History: Appendectomy, Cholecystectomy, Hemorrhoidectomy, Hernia Repair Genitourinary Surgical Hx: No Pertinent History Musculskeletal Surgical Hx: Joint Replacement, Other Female Surgical History: Hysterectomy Other Surgical History: thyroidectomy;. carpal tunnel. , LEFT KNEE REPLACEMENT, right knee replacement 11/06 - Social History Smoking Status: Never smoker Exposure to second hand smoke: No Alcohol: None Drug Use: none - Physical Exam Vital Signs: Vital Signs - 24 hr Temp Pulse Resp BP BP Pulse Ox 04/30/23 20:04 98.1 F 85 16 177/103 97 04/30/23 19:56 85 04/30/23 19:03 93 L 04/30/23 18:33 98 F 96 H 18 190/107 95 04/30/23 18:13 95 04/30/23 18:11 96 H 95 04/30/23 17:31 88 21 143/92 94 L 04/30/23 17:11 87 20 169/97 04/30/23 17:10 87 21 95 04/30/23 17:03 90 27 H 04/30/23 16:30 134/67 04/30/23 16:01 84 17 141/80 93 L 04/30/23 15:30 80 30 H 156/78 93 L 04/30/23 15:01 83 16 157/100 04/30/23 14:25 97.3 F 80 20 196/96 95 General Appearance: no apparent distress Neurologic Exam: alert, oriented x 3 Eye Exam: PERRL/EOMI, eyes nml inspection Ears, Nose, Throat Exam: normal ENT inspection Neck Exam: normal inspection Respiratory Exam: normal breath sounds Cardiovascular Exam: regular rate/rhythm, normal heart sounds Gastrointestinal/Abdomen Exam: soft, normal bowel sounds, No tenderness Pelvic Exam: not done Rectal Exam: deferred Back Exam: normal inspection Extremity Exam: other (Right leg) Lymphatic Exam: No adenopathy Results - Labs Lab/Micro Results: Lab Results-Last 24 Hours 04/30/23 04/30/23 04/30/23 Range/Units 14:25 14:25 14:25 WBC 6.2 (4.0-10.5) x10^3/uL RBC 4.00 L (4.1-5.4) x10^6/uL Hgb 12.5 (12.0-16.0) g/dL Hct 39.3 (35-47) % MCV 98.3 (78-100) fL MCH 31.3 (26-32) pg MCHC 31.8 L (32-36) g/dL RDW 14.4 H (11.5-14.0) % Plt Count 249 (150-450) x10^3/uL MPV 9.0 (7.5-11.0) fL Gran % 64.1 (36.0-66.0) % Immature Gran % (Auto) 0.2 (0.00-0.4) % Nucleat RBC Rel Count 0.0 (0.00-0.1) % Eos # (Auto) 0.27 (0-0.5) x10^3/uL Immature Gran # (Auto) 0.01 (0.00-0.03) x10^3u/L Absolute Lymphs (auto) 1.47 (1.0-4.6) x10^3/uL Absolute Monos (auto) 0.43 (0.0-1.3) x10^3/uL Absolute Nucleated RBC 0.00 (0.00-0.01) x10^3u/L Lymphocytes % 23.8 L (24.0-44.0) % Monocytes % 7.0 (0.0-12.0) % Eosinophils % 4.4 (0.00-5.0) % Basophils % 0.5 (0.0-0.4) % Absolute Granulocytes 3.97 (1.4-6.9) x10^3/uL Basophils # 0.03 (0-0.4) x10^3/uL PT 10.6 (9.4-12.5) SECONDS INR 0.97 (0.8-3.0) APTT 26.2 (25.1-36.5) SECONDS Sodium 141 (137-145) mmol/L Potassium 3.7 (3.5-5.1) mmol/L Chloride 107 (98-107) mmol/L Carbon Dioxide 28 (22-30) mmol/L Anion Gap 10.3 (5-15) MEQ/L BUN 12 (7-17) mg/dL Creatinine 0.78 (0.52-1.04) mg/dL Estimated GFR 79.7 ML/MIN Glucose 132 H (74-106) mg/dL Calcium 9.6 (8.4-10.2) mg/dL Total Bilirubin 0.90 (0.2-1.3) mg/dL AST 21 (14-36) U/L ALT 23 (0-35) U/L Alkaline Phosphatase 103 (38-126) U/L Troponin I (0.000-0.034) ng/mL NT-Pro-B Natriuret Pep (<300) pg/mL Serum Total Protein 7.2 (6.3-8.2) g/dL Albumin 4.1 (3.5-5.0) g/dL Urine Color (Yellow) Urine Appearance (Clear) Urine pH (4.6-8.0) Ur Specific Atkins (1.005-1.030) Urine Protein (Negative) Urine Glucose (UA) (Negative) mg/dL Urine Ketones (Negative) Urine Blood (Negative) Urine Nitrite (Negative) Urine Bilirubin (Negative) Urine Urobilinogen (0.2) mg/dL Ur Leukocyte Esterase (Negative) U Hyaline Cast (Auto) (0-2) /LPF Urine Microscopic RBC (0-5) /HPF Urine Microscopic WBC (0-5) /HPF Ur Epithelial Cells (None Seen) /HPF Urine Bacteria (None Seen) /HPF Urine Culture Reflexed (NO) 04/30/23 04/30/23 04/30/23 Range/Units 17:10 17:10 18:50 WBC (4.0-10.5) x10^3/uL RBC (4.1-5.4) x10^6/uL Hgb (12.0-16.0) g/dL Hct (35-47) % MCV (78-100) fL MCH (26-32) pg MCHC (32-36) g/dL RDW (11.5-14.0) % Plt Count (150-450) x10^3/uL MPV (7.5-11.0) fL Gran % (36.0-66.0) % Immature Gran % (Auto) (0.00-0.4) % Nucleat RBC Rel Count (0.00-0.1) % Eos # (Auto) (0-0.5) x10^3/uL Immature Gran # (Auto) (0.00-0.03) x10^3u/L Absolute Lymphs (auto) (1.0-4.6) x10^3/uL Absolute Monos (auto) (0.0-1.3) x10^3/uL Absolute Nucleated RBC (0.00-0.01) x10^3u/L Lymphocytes % (24.0-44.0) % Monocytes % (0.0-12.0) % Eosinophils % (0.00-5.0) % Basophils % (0.0-0.4) % Absolute Granulocytes (1.4-6.9) x10^3/uL Basophils # (0-0.4) x10^3/uL PT (9.4-12.5) SECONDS INR (0.8-3.0) APTT (25.1-36.5) SECONDS Sodium (137-145) mmol/L Potassium (3.5-5.1) mmol/L Chloride (98-107) mmol/L Carbon Dioxide (22-30) mmol/L Anion Gap (5-15) MEQ/L BUN (7-17) mg/dL Creatinine (0.52-1.04) mg/dL Estimated GFR ML/MIN Glucose (74-106) mg/dL Calcium (8.4-10.2) mg/dL Total Bilirubin (0.2-1.3) mg/dL AST (14-36) U/L ALT (0-35) U/L Alkaline Phosphatase (38-126) U/L Troponin I < 0.012 (0.000-0.034) ng/mL NT-Pro-B Natriuret Pep 340 (<300) pg/mL Serum Total Protein (6.3-8.2) g/dL Albumin (3.5-5.0) g/dL Urine Color Yellow (Yellow) Urine Appearance Clear (Clear) Urine pH 7.0 (4.6-8.0) Ur Specific Atkins 1.020 (1.005-1.030) Urine Protein Negative (Negative) Urine Glucose (UA) Negative (Negative) mg/dL Urine Ketones Negative (Negative) Urine Blood Moderate A (Negative) Urine Nitrite Positive A (Negative) Urine Bilirubin Negative (Negative) Urine Urobilinogen 0.2 (0.2) mg/dL Ur Leukocyte Esterase Moderate A (Negative) U Hyaline Cast (Auto) NONE SEEN (0-2) /LPF Urine Microscopic RBC 21-50 A (0-5) /HPF Urine Microscopic WBC 51-100 A (0-5) /HPF Ur Epithelial Cells None Seen (None Seen) /HPF Urine Bacteria Few A (None Seen) /HPF Urine Culture Reflexed YES (NO) - Radiology Impressions Radiology Exams & Impressions: Radiology Procedures Category Date Time Status CHEST WITH CONTRAST [CT] Stat Exams 04/30/23 14:21 Completed ECHO W/2D AND DOPPLER [US] Routine Exams 05/01/23 00:01 Ordered Assessment/Plan (1) DVT (deep venous thrombosis) Current Visit: Yes Status: Acute Code(s): I82.409 - ACUTE EMBOLISM AND THOMBOS UNSP DEEP VN UNSP LOWER EXTREMITY (2) Pulmonary embolus Current Visit: Yes Status: Acute Assessment & Plan: 1. PE/DVT: odd story. Marked swelling of RLE since surgery in October. Now with extensive DVT and large PE though no increase in cardiac markers of R heart on CT. Continue heparin gtt. Bedrest. Echo ordered to eval for PAH(chronic VTE disease). At this point treat for 3 months as reversible issue with surgery/immobility. 2. HTN: no hx of. Did not appear anxious. Amlodipine ordered. 3. Dysuria: no fevers. UA + cultures ordered. 4. FEN: oral diet Dre Barros MD entire encounter done via telemedicine Code(s): I26.99 - OTHER PULMONARY EMBOLISM WITHOUT ACUTE COR PULMONALE Telemedicine Encounter - Telemedicine Encounter Telemedicine Encounter: The entirety of this encounter was performed via Telemedicine"
[2023-04-30] MEDS ORDERED: NEURONTIN ONE (21:07)
[2023-04-30] MEDS: Prozac 20 MG PO SCH (21:08)
[2023-04-30] MEDS ORDERED: NON-FORMULARY ITEM (Gabapentin [Gabapentin] 600 MG Tablet) PO SCH (22:00)
[2023-04-30] MEDS: TYLENOL 325 MG PO PRN (22:22)
[2023-05-01 03:52] LABS: Absolute Neutrophil Ct (ANC) 3.51 x10^3/uL (1.4-6.9); BASOPHIL % 0.3 % (0.0-0.4); Basophil (Absolute #) 0.02 x10^3/uL (0-0.4); Hematocrit 39.1 % (35-47); Hemoglobin 12.5 g/dL (12.0-16.0); IMMATURE GRAN # 0.02 x10^3u/L (0.00-0.03); IMMATURE GRAN % 0.3 % (0.00-0.4); Lymphocytes % 29.8 % (24.0-44.0); Mean Cell Volume 96.8 fL (78-100); Mean Corpuscular Hemoglobin 30.9 pg (26-32); Mean Platelet Volume 9.1 fL (7.5-11.0); Monocyte (Absolute #) 0.39 x10^3/uL (0.0-1.3); Monocytes % 6.5 % (0.0-12.0); Neutrophil % 58.1 % (36.0-66.0); Platelet Count 261 x10^3/uL (150-450); Red Blood Count 4.04 x10^6/uL (4.1-5.4); Red Cell Distribution Width 14.3 % (11.5-14.0)
[2023-05-01 04:37] LABS: ANION GAP 8.4 MEQ/L (5-15); Creatinine 1 0.7 mg/dL (0.52-1.04); EST GLOMERULAR FILTRATION RATE 90.7 ML/MIN; Potassium 3.8 mmol/L (3.5-5.1); TSH, 3RD Generation 2.11 mIU/L (0.47-4.68)
--- NOTE | 2023-05-01 05:41 | PCM.NOTE ---
Date and Time: 05/01/23 0535 Subjective Assessment: 73 yo wf with hx of MDD, OA s/p TKR presented with fatigue and increased sob/RLE swelling. Pt states she had TKR on right knee in october. Since October her leg has been swollen. The knee has been Xrayed on 2 occasions but no US done. CTA showed PE. US apparently done as well which showed RLE extensive DVT. Initially started on heparin gtt, converted to lovenox. Will start Eliquis tomorrow 10mg po BID for 7 days, then follow with Eliquis 5mg bid there after. Patient does follow with Dr. Hinojosa as op, case has been discussed. He agrees with plan, will review her ECHO, and see as op one week after Thanksgiving. 05/01: Met with patient bedside. No overnight events noted. Still with minor shortness of breath, on RA which is her baseline. She does have additional complaints of a minor headache. Denies fever,cough, cp, abdominal pain,dizziness, N/V/D. - Review of Systems Constitutional: No Symptoms Eyes: No Symptoms Ears, Nose, & Throat: No Symptoms Respiratory: Short Of Breath Cardiac: Edema (RLE edema ) Abdominal/Gastrointestinal: No Symptoms Genitourinary Symptoms: No Symptoms Musculoskeletal: Joint Pain Skin: No Symptoms Neurological: No Symptoms Psychological: No Symptoms Endocrine: No Symptoms Hematologic/Lymphatic: Blood Clots Immunological/Allergic: No Symptoms Objective Exam General Appearance: no apparent distress Neurologic Exam: alert, oriented x 3, cooperative Respiratory Exam: normal breath sounds, lungs clear Cardiovascular Exam: regular rate/rhythm, normal heart sounds Gastrointestinal/Abdomen Exam: soft, normal bowel sounds Extremity Exam: swelling (RLE) OBJECTIVE DATA Vital Signs: Vital Signs - 24 hr Temp Pulse Resp BP BP Pulse Ox 05/01/23 04:00 98.3 F 63 20 149/87 100 05/01/23 03:00 66 24 117/77 100 04/30/23 23:49 76 04/30/23 23:47 76 16 151/91 97 04/30/23 20:04 98.1 F 85 16 177/103 97 04/30/23 19:56 85 04/30/23 19:03 93 L 04/30/23 18:33 98 F 96 H 18 190/107 95 04/30/23 18:13 95 04/30/23 18:11 96 H 95 04/30/23 17:31 88 21 143/92 94 L 04/30/23 17:11 87 20 169/97 04/30/23 17:10 87 21 95 04/30/23 17:03 90 27 H 04/30/23 16:30 134/67 04/30/23 16:01 84 17 141/80 93 L 04/30/23 15:30 80 30 H 156/78 93 L 04/30/23 15:01 83 16 157/100 04/30/23 14:25 97.3 F 80 20 196/96 95 Pain Assessment - Last Documented Pain Intensity 2 Intake and Output: Intake & Output 04/28/23 04/29/23 04/30/23 05/01/23 11:59 11:59 11:59 11:59 Weight 97 kg Lab Results: Lab Results-Last 24 Hours 04/30/23 04/30/23 04/30/23 Range/Units 14:25 14:25 14:25 WBC 6.2 (4.0-10.5) x10^3/uL RBC 4.00 L (4.1-5.4) x10^6/uL Hgb 12.5 (12.0-16.0) g/dL Hct 39.3 (35-47) % MCV 98.3 (78-100) fL MCH 31.3 (26-32) pg MCHC 31.8 L (32-36) g/dL RDW 14.4 H (11.5-14.0) % Plt Count 249 (150-450) x10^3/uL MPV 9.0 (7.5-11.0) fL Gran % 64.1 (36.0-66.0) % Immature Gran % (Auto) 0.2 (0.00-0.4) % Nucleat RBC Rel Count 0.0 (0.00-0.1) % Eos # (Auto) 0.27 (0-0.5) x10^3/uL Immature Gran # (Auto) 0.01 (0.00-0.03) x10^3u/L Absolute Lymphs (auto) 1.47 (1.0-4.6) x10^3/uL Absolute Monos (auto) 0.43 (0.0-1.3) x10^3/uL Absolute Nucleated RBC 0.00 (0.00-0.01) x10^3u/L Lymphocytes % 23.8 L (24.0-44.0) % Monocytes % 7.0 (0.0-12.0) % Eosinophils % 4.4 (0.00-5.0) % Basophils % 0.5 (0.0-0.4) % Absolute Granulocytes 3.97 (1.4-6.9) x10^3/uL Basophils # 0.03 (0-0.4) x10^3/uL PT 10.6 (9.4-12.5) SECONDS INR 0.97 (0.8-3.0) APTT 26.2 (25.1-36.5) SECONDS Sodium 141 (137-145) mmol/L Potassium 3.7 (3.5-5.1) mmol/L Chloride 107 (98-107) mmol/L Carbon Dioxide 28 (22-30) mmol/L Anion Gap 10.3 (5-15) MEQ/L BUN 12 (7-17) mg/dL Creatinine 0.78 (0.52-1.04) mg/dL Estimated GFR 79.7 ML/MIN Glucose 132 H (74-106) mg/dL Calcium 9.6 (8.4-10.2) mg/dL Total Bilirubin 0.90 (0.2-1.3) mg/dL AST 21 (14-36) U/L ALT 23 (0-35) U/L Alkaline Phosphatase 103 (38-126) U/L Troponin I (0.000-0.034) ng/mL NT-Pro-B Natriuret Pep (<300) pg/mL Serum Total Protein 7.2 (6.3-8.2) g/dL Albumin 4.1 (3.5-5.0) g/dL TSH 3rd Generation (0.47-4.68) mIU/L Urine Color (Yellow) Urine Appearance (Clear) Urine pH (4.6-8.0) Ur Specific Pennock (1.005-1.030) Urine Protein (Negative) Urine Glucose (UA) (Negative) mg/dL Urine Ketones (Negative) Urine Blood (Negative) Urine Nitrite (Negative) Urine Bilirubin (Negative) Urine Urobilinogen (0.2) mg/dL Ur Leukocyte Esterase (Negative) U Hyaline Cast (Auto) (0-2) /LPF Urine Microscopic RBC (0-5) /HPF Urine Microscopic WBC (0-5) /HPF Ur Epithelial Cells (None Seen) /HPF Urine Bacteria (None Seen) /HPF Urine Culture Reflexed (NO) 04/30/23 04/30/23 04/30/23 Range/Units 17:10 17:10 18:50 WBC (4.0-10.5) x10^3/uL RBC (4.1-5.4) x10^6/uL Hgb (12.0-16.0) g/dL Hct (35-47) % MCV (78-100) fL MCH (26-32) pg MCHC (32-36) g/dL RDW (11.5-14.0) % Plt Count (150-450) x10^3/uL MPV (7.5-11.0) fL Gran % (36.0-66.0) % Immature Gran % (Auto) (0.00-0.4) % Nucleat RBC Rel Count (0.00-0.1) % Eos # (Auto) (0-0.5) x10^3/uL Immature Gran # (Auto) (0.00-0.03) x10^3u/L Absolute Lymphs (auto) (1.0-4.6) x10^3/uL Absolute Monos (auto) (0.0-1.3) x10^3/uL Absolute Nucleated RBC (0.00-0.01) x10^3u/L Lymphocytes % (24.0-44.0) % Monocytes % (0.0-12.0) % Eosinophils % (0.00-5.0) % Basophils % (0.0-0.4) % Absolute Granulocytes (1.4-6.9) x10^3/uL Basophils # (0-0.4) x10^3/uL PT (9.4-12.5) SECONDS INR (0.8-3.0) APTT (25.1-36.5) SECONDS Sodium (137-145) mmol/L Potassium (3.5-5.1) mmol/L Chloride (98-107) mmol/L Carbon Dioxide (22-30) mmol/L Anion Gap (5-15) MEQ/L BUN (7-17) mg/dL Creatinine (0.52-1.04) mg/dL Estimated GFR ML/MIN Glucose (74-106) mg/dL Calcium (8.4-10.2) mg/dL Total Bilirubin (0.2-1.3) mg/dL AST (14-36) U/L ALT (0-35) U/L Alkaline Phosphatase (38-126) U/L Troponin I < 0.012 (0.000-0.034) ng/mL NT-Pro-B Natriuret Pep 340 (<300) pg/mL Serum Total Protein (6.3-8.2) g/dL Albumin (3.5-5.0) g/dL TSH 3rd Generation (0.47-4.68) mIU/L Urine Color Yellow (Yellow) Urine Appearance Clear (Clear) Urine pH 7.0 (4.6-8.0) Ur Specific Pennock 1.020 (1.005-1.030) Urine Protein Negative (Negative) Urine Glucose (UA) Negative (Negative) mg/dL Urine Ketones Negative (Negative) Urine Blood Moderate A (Negative) Urine Nitrite Positive A (Negative) Urine Bilirubin Negative (Negative) Urine Urobilinogen 0.2 (0.2) mg/dL Ur Leukocyte Esterase Moderate A (Negative) U Hyaline Cast (Auto) NONE SEEN (0-2) /LPF Urine Microscopic RBC 21-50 A (0-5) /HPF Urine Microscopic WBC 51-100 A (0-5) /HPF Ur Epithelial Cells None Seen (None Seen) /HPF Urine Bacteria Few A (None Seen) /HPF Urine Culture Reflexed YES (NO) 04/30/23 04/30/23 05/01/23 Range/Units 20:30 23:30 00:45 WBC (4.0-10.5) x10^3/uL RBC (4.1-5.4) x10^6/uL Hgb (12.0-16.0) g/dL Hct (35-47) % MCV (78-100) fL MCH (26-32) pg MCHC (32-36) g/dL RDW (11.5-14.0) % Plt Count (150-450) x10^3/uL MPV (7.5-11.0) fL Gran % (36.0-66.0) % Immature Gran % (Auto) (0.00-0.4) % Nucleat RBC Rel Count (0.00-0.1) % Eos # (Auto) (0-0.5) x10^3/uL Immature Gran # (Auto) (0.00-0.03) x10^3u/L Absolute Lymphs (auto) (1.0-4.6) x10^3/uL Absolute Monos (auto) (0.0-1.3) x10^3/uL Absolute Nucleated RBC (0.00-0.01) x10^3u/L Lymphocytes % (24.0-44.0) % Monocytes % (0.0-12.0) % Eosinophils % (0.00-5.0) % Basophils % (0.0-0.4) % Absolute Granulocytes (1.4-6.9) x10^3/uL Basophils # (0-0.4) x10^3/uL PT (9.4-12.5) SECONDS INR (0.8-3.0) APTT 45.3 H (25.1-36.5) SECONDS Sodium (137-145) mmol/L Potassium (3.5-5.1) mmol/L Chloride (98-107) mmol/L Carbon Dioxide (22-30) mmol/L Anion Gap (5-15) MEQ/L BUN (7-17) mg/dL Creatinine (0.52-1.04) mg/dL Estimated GFR ML/MIN Glucose (74-106) mg/dL Calcium (8.4-10.2) mg/dL Total Bilirubin (0.2-1.3) mg/dL AST (14-36) U/L ALT (0-35) U/L Alkaline Phosphatase (38-126) U/L Troponin I < 0.012 < 0.012 (0.000-0.034) ng/mL NT-Pro-B Natriuret Pep (<300) pg/mL Serum Total Protein (6.3-8.2) g/dL Albumin (3.5-5.0) g/dL TSH 3rd Generation (0.47-4.68) mIU/L Urine Color (Yellow) Urine Appearance (Clear) Urine pH (4.6-8.0) Ur Specific Pennock (1.005-1.030) Urine Protein (Negative) Urine Glucose (UA) (Negative) mg/dL Urine Ketones (Negative) Urine Blood (Negative) Urine Nitrite (Negative) Urine Bilirubin (Negative) Urine Urobilinogen (0.2) mg/dL Ur Leukocyte Esterase (Negative) U Hyaline Cast (Auto) (0-2) /LPF Urine Microscopic RBC (0-5) /HPF Urine Microscopic WBC (0-5) /HPF Ur Epithelial Cells (None Seen) /HPF Urine Bacteria (None Seen) /HPF Urine Culture Reflexed (NO) 05/01/23 05/01/23 05/01/23 Range/Units 03:50 03:50 03:50 WBC 6.0 (4.0-10.5) x10^3/uL RBC 4.04 L (4.1-5.4) x10^6/uL Hgb 12.5 (12.0-16.0) g/dL Hct 39.1 (35-47) % MCV 96.8 (78-100) fL MCH 30.9 (26-32) pg MCHC 32.0 (32-36) g/dL RDW 14.3 H (11.5-14.0) % Plt Count 261 (150-450) x10^3/uL MPV 9.1 (7.5-11.0) fL Gran % 58.1 (36.0-66.0) % Immature Gran % (Auto) 0.3 (0.00-0.4) % Nucleat RBC Rel Count 0.0 (0.00-0.1) % Eos # (Auto) 0.30 (0-0.5) x10^3/uL Immature Gran # (Auto) 0.02 (0.00-0.03) x10^3u/L Absolute Lymphs (auto) 1.80 (1.0-4.6) x10^3/uL Absolute Monos (auto) 0.39 (0.0-1.3) x10^3/uL Absolute Nucleated RBC 0.00 (0.00-0.01) x10^3u/L Lymphocytes % 29.8 (24.0-44.0) % Monocytes % 6.5 (0.0-12.0) % Eosinophils % 5.0 (0.00-5.0) % Basophils % 0.3 (0.0-0.4) % Absolute Granulocytes 3.51 (1.4-6.9) x10^3/uL Basophils # 0.02 (0-0.4) x10^3/uL PT (9.4-12.5) SECONDS INR (0.8-3.0) APTT 53.8 H (25.1-36.5) SECONDS Sodium 138 (137-145) mmol/L Potassium 3.8 (3.5-5.1) mmol/L Chloride 106 (98-107) mmol/L Carbon Dioxide 27 (22-30) mmol/L Anion Gap 8.4 (5-15) MEQ/L BUN 10 (7-17) mg/dL Creatinine 0.70 (0.52-1.04) mg/dL Estimated GFR 90.7 ML/MIN Glucose 123 H (74-106) mg/dL Calcium 9.0 (8.4-10.2) mg/dL Total Bilirubin (0.2-1.3) mg/dL AST (14-36) U/L ALT (0-35) U/L Alkaline Phosphatase (38-126) U/L Troponin I (0.000-0.034) ng/mL NT-Pro-B Natriuret Pep (<300) pg/mL Serum Total Protein (6.3-8.2) g/dL Albumin (3.5-5.0) g/dL TSH 3rd Generation 2.110 (0.47-4.68) mIU/L Urine Color (Yellow) Urine Appearance (Clear) Urine pH (4.6-8.0) Ur Specific Pennock (1.005-1.030) Urine Protein (Negative) Urine Glucose (UA) (Negative) mg/dL Urine Ketones (Negative) Urine Blood (Negative) Urine Nitrite (Negative) Urine Bilirubin (Negative) Urine Urobilinogen (0.2) mg/dL Ur Leukocyte Esterase (Negative) U Hyaline Cast (Auto) (0-2) /LPF Urine Microscopic RBC (0-5) /HPF Urine Microscopic WBC (0-5) /HPF Ur Epithelial Cells (None Seen) /HPF Urine Bacteria (None Seen) /HPF Urine Culture Reflexed (NO) Radiology Exams: Radiology Procedures Category Date Time Status CHEST WITH CONTRAST [CT] Stat Exams 04/30/23 14:21 Completed ECHO W/2D AND DOPPLER [US] Routine Exams 05/01/23 00:01 Ordered Assessment/Plan (1) Pulmonary embolus Current Visit: Yes Status: Acute Assessment & Plan: 04/30: -PE/DVT: odd story. Marked swelling of RLE since surgery in October. Now with extensive DVT and large PE though no increase in cardiac markers of R heart on CT. Continue heparin gtt. Bedrest. Echo ordered to eval for PAH(chronic VTE disease). At this point treat for 3 months as reversible issue with surgery/immobility. 05/01: -D/c heparin gtt, start Lovenox full dose -Start eliquis 10mg po bid x 7 days then 5mg bid tomorrow -Discussed case with Dr. Hinojosa, he will review echo, agrees with plan, patient to follow up a week after Thanksgiving Code(s): I26.99 - OTHER PULMONARY EMBOLISM WITHOUT ACUTE COR PULMONALE (2) DVT (deep venous thrombosis) Current Visit: Yes Status: Acute Assessment & Plan: -see PE Code(s): I82.409 - ACUTE EMBOLISM AND THOMBOS UNSP DEEP VN UNSP LOWER EXTREMITY (3) HTN (hypertension) Current Visit: Yes Status: Acute Assessment & Plan: 04/30: -No h/o initiated amlodipine Code(s): I10 - ESSENTIAL (PRIMARY) HYPERTENSION (4) Dysuria Current Visit: Yes Status: Acute Assessment & Plan: 04/30: -no fevers. UA + cultures ordered. 05/01: -Start ceftriaxone, follow culture Code(s): R30.0 - DYSURIA
[2023-05-01] MEDS ORDERED: NEURONTIN PO PRN (07:12)
[2023-05-01] MEDS: ROCEPHIN 2 Gm-D5w 50ML BAG** 2 G/50 ML IVPB IV SCH (08:26)
[2023-05-01] MEDS: SYNTHROID 100 MCG PO SCH (08:27)
[2023-05-01] MEDS: Prozac 20 MG PO SCH ×2 (08:27→21:07)
[2023-05-01] MEDS ORDERED: SYNTHROID 100 MCG PO SCH (10:00)
[2023-05-01] MEDS ORDERED: SILVADENE 50 GM TP PRN (11:09)
[2023-05-01] MEDS: TYLENOL 325 MG PO PRN (11:30)
[2023-05-01] MEDS: QUESTRAN Light 4 GM Packet PO SCH (12:00)
[2023-05-01] MEDS: ENOXAPARIN SODIUM SQ SCH ×2 (12:00→22:19)
[2023-05-01] MEDS: NORCO 5/325 MG PO PRN ×2 (12:50→17:42)
[2023-05-01] MEDS ORDERED: NEURONTIN PO SCH (22:00)
[2023-05-02 05:48] LABS: Absolute Neutrophil Ct (ANC) 3.05 x10^3/uL (1.4-6.9); BASOPHIL % 0.4 % (0.0-0.4); Basophil (Absolute #) 0.02 x10^3/uL (0-0.4); Eosinophil (Absolute #) 0.26 x10^3/uL (0-0.5); Hematocrit 39.1 % (35-47); Hemoglobin 12.4 g/dL (12.0-16.0); IMMATURE GRAN # 0.01 x10^3u/L (0.00-0.03); IMMATURE GRAN % 0.2 % (0.00-0.4); Lymphocyte (Absolute #) 1.49 x10^3/uL (1.0-4.6); Lymphocytes % 28.5 % (24.0-44.0); Mean Cell Volume 96.5 fL (78-100); Mean Corpuscular Hemoglobin 30.6 pg (26-32); Mean Corpuscular Hgb Concent. 31.7 g/dL (32-36); Mean Platelet Volume 9.3 fL (7.5-11.0); Monocytes % 7.6 % (0.0-12.0); Neutrophil % 58.3 % (36.0-66.0); Platelet Count 272 x10^3/uL (150-450); Red Blood Count 4.05 x10^6/uL (4.1-5.4); Red Cell Distribution Width 14.3 % (11.5-14.0); White Blood Count 5.2 x10^3/uL (4.0-10.5)
[2023-05-02 06:07] LABS: ALBUMIN 3.7 g/dL (3.5-5.0); BILIRUBIN,TOTAL 0.9 mg/dL (0.2-1.3); Creatinine 1 0.75 mg/dL (0.52-1.04); EST GLOMERULAR FILTRATION RATE 83.5 ML/MIN; Total Protein 6.8 g/dL (6.3-8.2)
[2023-05-02 06:22] LABS: Potassium 3.6 mmol/L (3.5-5.1)
[2023-05-02 06:23] LABS: ANION GAP 9.6 MEQ/L (5-15)
[2023-05-02 06:56] VITALS: RESP 16
[2023-05-02] MEDS: ROCEPHIN 2 Gm-D5w 50ML BAG** 2 G/50 ML IVPB IV SCH ×2 (08:44→12:47)
[2023-05-02] MEDS: Prozac 20 MG PO SCH (08:44)
[2023-05-02] MEDS: SYNTHROID 100 MCG PO SCH (08:44)
[2023-05-02] MEDS ORDERED: ELIQUIS 2.5 MG TABLET PO SCH (10:00)
--- NOTE | 2023-05-02 12:03 | PCM.DS ---
Discharge Summary Date of Admission: 04/30/23 18:04 Date of Discharge: 05/02/23 Admitting Physician: ORIANA IGLESIAS MD Consults: Consults on Case 05/01/23 10:27 Consult Cardiology ROUTINE Primary Care Provider: MUSA POLANCO Allergies Allergies VITAMIN K+ INJECTION Allergy (Mild, Uncoded 04/30/23 14:22) Swelling of Joints Hospital Summary - Hospital Course Hospital Course: 73 yo wf with hx of MDD, OA s/p TKR presented with fatigue and increased sob/RLE swelling. Pt states she had TKR on right knee in october. Since October her leg has been swollen. The knee has been Xrayed on 2 occasions but no US done. CTA showed PE. US apparently done as well which showed RLE extensive DVT. Initially started on heparin gtt, converted to lovenox. Will start Eliquis tomorrow 10mg po BID for 7 days, then follow with Eliquis 5mg bid there after. Patient does follow with Dr. Quintana as op, case has been discussed. He agrees with plan, will review her ECHO, and see as op one week after Thanks. Incidentally patient found to have UTI with gram negative on culture, will send her home with Cefdinir and call if this needs changed. New Diagnosis: PE/DVT New Medications: Eliquis/cefdinir Follow Up: Cards/pcp Latest Assessment & Plan 04/30: -PE/DVT: odd story. Marked swelling of RLE since surgery in October. Now with extensive DVT and large PE though no increase in cardiac markers of R heart on CT. Continue heparin gtt. Bedrest. Echo ordered to eval for PAH(chronic VTE disease). At this point treat for 3 months as reversible issue with surgery/immobility. 05/01: -D/c heparin gtt, start Lovenox full dose -Start eliquis 10mg po bid x 7 days then 5mg bid tomorrow -Discussed case with Dr. Quintana, he will review echo, agrees with plan, patient to follow up a week after Thanks Code(s): I26.99 - OTHER PULMONARY EMBOLISM WITHOUT ACUTE COR PULMONALE (2) DVT (deep venous thrombosis) Current Visit: Yes Status: Acute Assessment & Plan: -see PE Code(s): I82.409 - ACUTE EMBOLISM AND THOMBOS UNSP DEEP VN UNSP LOWER EXTREMITY (3) HTN (hypertension) Current Visit: Yes Status: Acute Assessment & Plan: 04/30: -No h/o initiated amlodipine Code(s): I10 - ESSENTIAL (PRIMARY) HYPERTENSION (4) Dysuria Current Visit: Yes Status: Acute Assessment & Plan: 04/30: -no fevers. UA + cultures ordered. 05/01: -Start ceftriaxone, follow culture I spent 35 minutes [id number] with the patient on the day of discharge performing discharge exam, discussing hospital stay and discharge instructions with patient and caregivers, preparation of discharge records, prescriptions & referral forms and addressing any questions/concerns the patient had as documented above. - Vitals & Intake/Output Vital Signs: Vital Signs Temperature 98.1 F 05/02/23 06:55 Pulse Rate 69 05/02/23 06:55 Respiratory Rate 16 05/02/23 06:55 Blood Pressure 139/83 05/02/23 06:55 O2 Sat by Pulse Oximetry 94 L 05/02/23 06:55 Intake & Output: Intake & Output 04/29/23 04/30/23 05/01/23 05/02/23 11:59 11:59 11:59 11:59 Intake Total 0 240 Balance 0 240 Weight 97 kg - Lab Result Diagrams: 05/02/23 05:40 05/02/23 05:40 Lab Results-Last 24 Hrs: Lab Results-Last 24 Hours 04/30/23 05/02/23 05/02/23 Range/Units 17:10 05:40 05:40 WBC 5.2 (4.0-10.5) x10^3/uL RBC 4.05 L (4.1-5.4) x10^6/uL Hgb 12.4 (12.0-16.0) g/dL Hct 39.1 (35-47) % MCV 96.5 (78-100) fL MCH 30.6 (26-32) pg MCHC 31.7 L (32-36) g/dL RDW 14.3 H (11.5-14.0) % Plt Count 272 (150-450) x10^3/uL MPV 9.3 (7.5-11.0) fL Gran % 58.3 (36.0-66.0) % Immature Gran % (Auto) 0.2 (0.00-0.4) % Nucleat RBC Rel Count 0.0 (0.00-0.1) % Eos # (Auto) 0.26 (0-0.5) x10^3/uL Immature Gran # (Auto) 0.01 (0.00-0.03) x10^3u/L Absolute Lymphs (auto) 1.49 (1.0-4.6) x10^3/uL Absolute Monos (auto) 0.40 (0.0-1.3) x10^3/uL Absolute Nucleated RBC 0.00 (0.00-0.01) x10^3u/L Lymphocytes % 28.5 (24.0-44.0) % Monocytes % 7.6 (0.0-12.0) % Eosinophils % 5.0 (0.00-5.0) % Basophils % 0.4 (0.0-0.4) % Absolute Granulocytes 3.05 (1.4-6.9) x10^3/uL Basophils # 0.02 (0-0.4) x10^3/uL APTT (25.1-36.5) SECONDS Sodium 139 (137-145) mmol/L Potassium 3.6 (3.5-5.1) mmol/L Chloride 107 (98-107) mmol/L Carbon Dioxide 26 (22-30) mmol/L Anion Gap 9.6 (5-15) MEQ/L BUN 12 (7-17) mg/dL Creatinine 0.75 (0.52-1.04) mg/dL Estimated GFR 83.5 ML/MIN Glucose 107 H (74-106) mg/dL Calcium 9.0 (8.4-10.2) mg/dL Total Bilirubin 0.90 (0.2-1.3) mg/dL AST 26 (14-36) U/L ALT 22 (0-35) U/L Alkaline Phosphatase 94 (38-126) U/L Serum Total Protein 6.8 (6.3-8.2) g/dL Albumin 3.7 (3.5-5.0) g/dL Micro Results-Entire Visit: Microbiology 04/30/23 18:50 Urine Culture - Preliminary Clean Catch Midstream GRAM NEGATIVE ID AND SENSITIVITY PENDING - Radiology Exams Ordered Rad Exams-Entire Visit: Radiology Procedures Category Date Time Status CHEST WITH CONTRAST [CT] Stat Exams 04/30/23 14:21 Completed ECHO W/2D AND DOPPLER [US] Routine Exams 05/01/23 00:01 Taken Discharge Exam General Appearance: no apparent distress Neurologic Exam: alert, oriented x 3, cooperative Eye Exam: PERRL Ears, Nose, Throat Exam: normal ENT inspection Neck Exam: normal inspection Respiratory Exam: normal breath sounds, lungs clear Cardiovascular Exam: regular rate/rhythm, normal heart sounds Gastrointestinal/Abdomen Exam: soft, normal bowel sounds Pelvic Exam: deferred Rectal Exam: deferred Extremity Exam: swelling (RLE) Skin Exam: normal color Final Diagnosis/Problem List - Final Discharge Diagnosis/Problem (1) Pulmonary embolus Current Visit: Yes Status: Acute Code(s): I26.99 - OTHER PULMONARY EMBOLISM WITHOUT ACUTE COR PULMONALE (2) DVT (deep venous thrombosis) Current Visit: Yes Status: Acute Code(s): I82.409 - ACUTE EMBOLISM AND THOMBOS UNSP DEEP VN UNSP LOWER EXTREMITY (3) HTN (hypertension) Current Visit: Yes Status: Acute Code(s): I10 - ESSENTIAL (PRIMARY) HYPERTENSION (4) Dysuria Current Visit: Yes Status: Acute Code(s): R30.0 - DYSURIA - Discharge Disposition: Home, Self-Care Condition: Stable Prescriptions: New Apixaban [Eliquis] 10 mg PO BID PRN 7 Days #13 tablet Cefdinir 300 mg PO BID 7 Days #14 cap Apixaban [Eliquis 2.5 mg Tablet] 5 mg PO BID tablet Apixaban [Eliquis 2.5 mg Tablet] 10 mg PO BID tablet Silver Sulfadiazine 50 gm [Silvadene 50 gm] 0 gm TP PRN PRN PRN Reason: Pain Continue Fluoxetine HCl 20 mg [Prozac 20 MG] 20 mg PO BID Levothyroxine Sodium 100 Mcg [Synthroid 100 Mcg] 100 mcg PO DAILY Cholestyramine/Aspartame [Cholestyramine Light Packet] 4 gm PO DAILY Gabapentin 600 mg PO TID PRN PRN Reason: Pain Gabapentin 300 mg PO HS Instructions: Deep Vein Thrombosis (Blood Clots in the Legs) (DC), Pulmonary Embolism (Blood Clot in the Lungs) (DC), Preventing falls in adults, Apixaban Follow up with: LZU MARIA QUINTANA [CONSULTING PHYSICIAN] - 05/13/23 3:00 pm MUSA POLANCO NP [Primary Care Provider] - 05/08/23 9:00 am
[2023-05-02 12:13] VITALS: BP 166/73; PULSE 71; TEMP 97.5; O2SAT 95
[2023-05-02] MEDS: TYLENOL 325 MG PO PRN (12:41)
[2023-05-02] MEDS: QUESTRAN Light 4 GM Packet PO SCH (12:45)
[2023-05-09] MEDS ORDERED: ELIQUIS 2.5 MG TABLET PO SCH (10:00)
== END 2023-05-02 13:33 | disposition home or self-care (01) ==
LOC: ED 14:16 → ICU 18:04 → MED SURG 05-01 10:32
PROVIDERS: ADMIT Internal Medicine; ATTEND Internal Medicine
DX: I26.99 Other pulmonary embolism without acute cor pulmonale (principal); I82.401 Acute embolism and thrombosis of unspecified deep veins of right lower extremity; I10 Essential (primary) hypertension; R30.0 Dysuria; Z85.850 Personal history of malignant neoplasm of thyroid; Z79.899 Other long term (current) drug therapy; Z20.828 Contact with and (suspected) exposure to other viral communicable diseases
CPT/HCPCS: 36000; 36415; 71260; 80048; 80053; 81001; 83880; 84443; 84484; 85025; 85610; 85730; 87077; 87086; 87186; 93268; 93306; 94762; 96365; 96374; 99285; 99291; 99292; G0378; Q3014; J0696; J1644; J1650; A9270-GY

== ENCOUNTER 2024-01-22 00:44 | Emergency (ER) | payer MEDICARE, OTHER ==
--- NOTE | 2024-01-22 00:54 | ERPHSYRPT ---
- History of Present Illness Time Seen by Provider: 01/22/24 00:54 Source: patient Exam Limitations: no limitations Physician History: Presents with dysuria and intermittent b/l flank pain. Hx of multiple kidney stones requiring surgery. Denies fevers, but reports chills. No recent illness. Patient endorses UPTON. Dark urine, no gross blood. Timing/Duration: today Activites at Onset: rest Quality: burning Onset Location: right flank, left flank Pain Radiation: none Severity of Pain-Max: moderate Severity of Pain-Current: mild Prior abdominal problems: similar symptoms Sexual intercourse history: non-contributory Modifying Factors: Worsens With: urinating Associated Symptoms: chills, No abdominal pain, No fever Allergies/Adverse Reactions: VITAMIN K+ INJECTION Allergy (Mild, Uncoded 01/22/24 01:15) Swelling of Joints Home Medications: Fluoxetine HCl 20 mg [Prozac 20 MG] 20 mg PO BID 06/05/13 [History] Cholestyramine/Aspartame [Cholestyramine Light Packet] 4 gm PO DAILY 09/01/22 [History] Levothyroxine Sodium 100 Mcg [Synthroid 100 Mcg] 100 mcg PO DAILY 09/01/22 [History] Gabapentin 300 mg PO HS 04/30/23 [History] Gabapentin 600 mg PO TID PRN 04/30/23 [History] Hx Tetanus, Diphtheria Vaccination/Date Given: No Hx Influenza Vaccination/Date Given: No Hx Pneumococcal Vaccination/Date Given: No - Review of Systems All Other Systems: Reviewed and Negative - Past Medical History Pertinent Past Medical History: Yes Neurological History: Peripheral Neuropathy ENT History: No Pertinent History Cardiac History: No Pertinent History Respiratory History: No Pertinent History Endocrine Medical History: Thyroid Cancer Musculoskeletal History: Arthritis GI Medical History: Hemorrhoids, Irritable Bowel History: No Pertinent History Psycho-Social History: Depression Female Reproductive Disorders: Fibroids - Past Surgical History Past Surgical History: Yes Neuro Surgical History: No Pertinent History Cardiac: No Pertinent History Respiratory: No Pertinent History Gastrointestinal: Appendectomy, Cholecystectomy, Hemorrhoidectomy, Hernia Repair Genitourinary: No Pertinent History Musculoskeletal: Joint Replacement, Other Female Surgical History: Hysterectomy Other Surgical History: thyroidectomy;. carpal tunnel. , LEFT KNEE REPLACEMENT, right knee replacement 11/06 - Social History Smoking Status: Never smoker Exposure to second hand smoke: No Drug Use: none Patient Lives Alone: Yes - Social Determinants of Health Will the patient participate in the screening: Yes Do you worry about a steady place to live?: No In the past 12 months,have you had to go without utilities?: No Transportation Issues: No Has anyone in your support network made you feel unsafe?: No Have you or anyone in your house had to go without enough: No - Nursing Vital Signs Nursing Vital Signs: Initial Vital Signs Temperature 98.9 F 01/22/24 00:57 Pulse Rate 90 01/22/24 00:57 Respiratory Rate 18 01/22/24 00:57 Blood Pressure 137/76 01/22/24 00:57 O2 Sat by Pulse Oximetry 96 01/22/24 00:57 Pain Scale Pain Intensity 7 - Physical Exam General Appearance: no apparent distress Gastrointestinal/Abdomen Exam: soft, No tenderness, No distention, No guarding, No rebound Back Exam: CVA tenderness (b/l) SpO2 Interpretation: normal O2 Delivery: Room Air - Course Nursing assessment & vital signs reviewed: Yes - CT Exams Abdomen/Pelvis CT Interpretation: Tele-radiologist Report, Other (2 proximal stones in right ureter measuring 15mm combined with mild hydroureter, 15mm stone in left renal pelvis) Ordered Tests: Active Orders 24 hr Category Date Time Status IV Insertion STAT Care 01/22/24 01:22 Active ABDOMEN AND PELVIS W/0 CONTRAS [CT] Stat Exams 01/22/24 01:23 Completed CBC W DIFF Stat Lab 01/22/24 01:50 Completed CMP Stat Lab 01/22/24 01:50 Completed CULTURE,URINE Stat Lab 01/22/24 01:16 Received UA W/RFX UR CULTURE Stat Lab 01/22/24 01:16 Completed Medication Summary Discontinued Medications Generic Name Dose Route Start Last Admin Trade Name Freq PRN Reason Stop Dose Admin Acetaminophen 975 mg 01/22/24 01:22 01/22/24 02:03 Acetaminophen 325 Mg Tablet PO 01/22/24 01:23 975 mg STAT ONE Administration Acetaminophen Confirm 01/22/24 01:28 Acetaminophen 325 Mg Tablet Administered 01/22/24 01:29 Dose 975 mg .ROUTE .STK-MED ONE Sodium Chloride 1,000 mls @ 999 mls/hr 01/22/24 01:22 01/22/24 02:16 Sodium Chloride 0.9% 1000 Ml IV 01/22/24 02:22 999 mls/hr .Q1H1M STA Administration Ceftriaxone Sodium 2 gm in 100 mls @ 200 mls/hr 01/22/24 01:24 01/22/24 02:17 Rocephin 2 Gm/100 Ml Nacl IV 01/22/24 01:53 200 mls/hr STAT ONE 200 mls/hr Administration Sodium Chloride Confirm 01/22/24 01:29 Sodium Chloride 0.9% 1000 Ml Administered 01/22/24 01:30 Dose 1,000 mls @ ud .ROUTE .STK-MED ONE Ceftriaxone Sodium Confirm 01/22/24 01:29 Rocephin 2 Gm/100 Ml Nacl Administered 01/22/24 01:30 Dose 2 gm in 100 mls @ ud IV .STK-MED ONE Lab/Rad Data: Laboratory Result Diagrams 01/22/24 01:50 01/22/24 01:50 Laboratory Results 01/22/24 01/22/24 01/22/24 Range/Units 01:50 01:50 01:16 WBC 8.2 (3.98-10.04) x10^3/uL RBC 3.68 L (3.93-5.22) x10^6/uL Hgb 11.7 (11.2-15.7) g/dL Hct 36.0 (34.1-44.9) % MCV 97.8 H (79.4-94.8) fL MCH 31.8 (25.6-32.2) pg MCHC 32.5 (32.2-35.5) g/dL RDW 13.8 (11.7-14.4) % Plt Count 193 (182-369) x10^3/uL MPV 9.4 (9.4-12.3) fL Gran % 82.7 H (34.0-71.1) % Immature Gran % (Auto) 0.5 H (0.001-0.429) % Nucleat RBC Rel Count 0.0 (0.00-0.2) % Eos # (Auto) 0.04 (0.04-0.36) x10^3/uL Immature Gran # (Auto) 0.04 H (0.001-0.031) x10^3u/L Absolute Lymphs (auto) 0.68 L (1.18-3.74) x10^3/uL Absolute Monos (auto) 0.64 (0.24-0.86) x10^3/uL Absolute Nucleated RBC 0.00 (0.00-0.012) x10^3u/L Lymphocytes % 8.3 L (19.3-51.7) % Monocytes % 7.8 (4.7-12.5) % Eosinophils % 0.5 L (0.7-5.8) % Basophils % 0.2 (0.1-1.2) % Absolute Granulocytes 6.74 H (1.56-6.13) x10^3/uL Basophils # 0.02 (0.01-0.08) x10^3/uL Sodium 137 (135-145) mmol/L Potassium 3.5 (3.5-5.1) mmol/L Chloride 103 (98-107) mmol/L Carbon Dioxide 26 (22-30) mmol/L Anion Gap 12.0 (5-15) MEQ/L BUN 14 (7-17) mg/dL Creatinine 1.11 H (0.52-1.04) mg/dL Estimated GFR 52.2 ML/MIN Glucose 143 H (74-106) mg/dL Calcium 9.0 (8.4-10.2) mg/dL Total Bilirubin 2.20 H (0.2-1.3) mg/dL AST 22 (14-36) U/L ALT 18 (0-35) U/L Alkaline Phosphatase 89 (38-126) U/L Serum Total Protein 6.6 (6.3-8.2) g/dL Albumin 3.7 (3.5-5.0) g/dL Urine Color Dark Yellow A (Yellow) Urine Appearance Turbid A (Clear) Urine pH 5.5 (4.6-8.0) Ur Specific [place] 1.020 (1.005-1.030) Urine Protein 100 A (Negative) Urine Glucose (UA) Negative (Negative) mg/dL Urine Ketones Trace A (Negative) Urine Blood Large A (Negative) Urine Nitrite Positive A (Negative) Urine Bilirubin Negative (Negative) Urine Urobilinogen 1.0 A (0.2) mg/dL Ur Leukocyte Esterase Large A (Negative) Urine Microscopic RBC 21-50 A (0-5) /HPF Urine Microscopic WBC >100 A (0-5) /HPF Ur Epithelial Cells Few (None Seen) /HPF Urine Bacteria Many A (None Seen) /HPF Urine Culture Reflexed YES (NO) - Progress Progress: improved Air Movement: good Progress Note: Patient has UTI given Ceftriaxone based on most recent sensitivity. Will prescribe Cefdinir at d/c. Patient found to have 2 proximal ureteral stones on the right measuring 15mm combined with mild hydro and 15 mm stone in left renal pelvis. Patient is in good condition, vs wnl, WBC wnl. She would like to reach out to her urologist in [place] tomorrow to schedule potential surgery outpatient. Due to her minimal sxs and sensitivity to abx I feel that she is in good enough condition to do this. If we were to transfer patient to [facility] she would be waiting several hours on a bed and transportation to the hospital. She would prefer to be discharged and schedule on her own. If she is unable to obtain appointment tomorrow she will return to the ER for transfer at that time. Blood Culture(s) Obtained: No Antibiotics given: Yes Counseled pt/family regarding: lab results, diagnosis, need for follow-up, rad results Medical Desision Making - Diagnostic Testing Diagnostic test were ordered, analyzed, and reviewed by me: Yes Radiological Interpretation: Interpreted by me, Reviewed by me, Teleradiologist Report - Risk of complications The pt has a mod risk of morbidity or mortality based on: Need for prescription drug management - Departure Departure Disposition: Home Clinical Impression: Hydroureter on right, Nephrolithiasis, UTI (urinary tract infection), Total bilirubin, elevated Condition: Good Critical Care Time: No Referrals: HANK MONTESINOS [Primary Care Provider] - Follow up/PCP as directed Instructions: Urinary Tract Infection, Adult (DC) Prescriptions: Cefdinir 300 mg PO BID 7 Days #14 cap
[2024-01-22 01:00] VITALS: RESP 18; TEMP 98.9; O2SAT 96
[2024-01-22] MEDS ORDERED: TYLENOL 325 MG ONE (01:28)
[2024-01-22] MEDS ORDERED: Sodium Chloride 0.9% 1000 ML 1,000 ML ONE (01:29)
[2024-01-22] MEDS ORDERED: ROCEPHIN 2 GM/100 ML NACL 2 GM/100 ML IVPB IV ONE (01:29)
[2024-01-22 01:55] LABS: Appearance Turbid (Clear); Bacteria Many /HPF (None Seen); Bilirubin Negative (Negative); Blood Large (Negative); Epithelial Cells Few /HPF (None Seen); Glucose, Urine Negative (Negative); Ketones Trace (Negative); Leukocyte Esterase Large (Negative); Nitrite Positive (Negative); Ph 5.5 (4.6-8.0); Protein,Urine Dip 100 (Negative); RBC 21-50 /HPF (0-5); WBC >100 /HPF (0-5)
[2024-01-22 01:56] LABS: ADD URINE CULTURE? YES (NO)
[2024-01-22 01:58] LABS: Absolute Neutrophil Ct (ANC) 6.74 x10^3/uL (1.56-6.13); BASOPHIL % 0.2 % (0.1-1.2); Basophil (Absolute #) 0.02 x10^3/uL (0.01-0.08); Eosinophil % 0.5 % (0.7-5.8); Eosinophil (Absolute #) 0.04 x10^3/uL (0.04-0.36); Hemoglobin 11.7 g/dL (11.2-15.7); IMMATURE GRAN # 0.04 x10^3u/L (0.001-0.031); IMMATURE GRAN % 0.5 % (0.001-0.429); Lymphocyte (Absolute #) 0.68 x10^3/uL (1.18-3.74); Lymphocytes % 8.3 % (19.3-51.7); Mean Cell Volume 97.8 fL (79.4-94.8); Mean Corpuscular Hemoglobin 31.8 pg (25.6-32.2); Mean Corpuscular Hgb Concent. 32.5 g/dL (32.2-35.5); Mean Platelet Volume 9.4 fL (9.4-12.3); Monocyte (Absolute #) 0.64 x10^3/uL (0.24-0.86); Monocytes % 7.8 % (4.7-12.5); Neutrophil % 82.7 % (34.0-71.1); Platelet Count 193 x10^3/uL (182-369); Red Blood Count 3.68 x10^6/uL (3.93-5.22); Red Cell Distribution Width 13.8 % (11.7-14.4); White Blood Count 8.2 x10^3/uL (3.98-10.04)
[2024-01-22] MEDS: TYLENOL 325 MG PO ONE (02:03)
[2024-01-22 02:11] LABS: ALBUMIN 3.7 g/dL (3.5-5.0); BILIRUBIN,TOTAL 2.2 mg/dL (0.2-1.3); Creatinine 1 1.11 mg/dL (0.52-1.04); EST GLOMERULAR FILTRATION RATE 52.2 ML/MIN; Potassium 3.5 mmol/L (3.5-5.1); Total Protein 6.6 g/dL (6.3-8.2)
[2024-01-22] MEDS: Sodium Chloride 0.9% 1000 ML 1,000 ML IV STA (02:16)
[2024-01-22] MEDS: ROCEPHIN 2 GM/100 ML NACL 2 GM/100 ML IVPB IV ONE (02:17)
--- NOTE | 2024-01-22 02:55 | XRAY ---
CLINICAL HISTORY: pain COMPARISON: None TECHNIQUE: Contiguous axial images were obtained from the level of the diaphragm to the pubic symphysis without intravenous or oral contrast. Coronal and sagittal reconstructions were likewise performed and indicated to increase the sensitivity for detecting clinically relevant pathology. CT scan was performed according to ALARA (as low as reasonably achievable). FINDINGS: Mild bi-basal atelectasis is seen. Rest of the visualized lung bases are clear. Evaluation of the abdominal and pelvic visceral organs is limited without intravenous contrast. The unenhanced liver, spleen, pancreas, and adrenal glands are grossly unremarkable. Post-cholecystectomy status. The kidneys are normal in size and attenuation. Multiple calculi noted in left kidney and renal pelvis, largest measuring 15 mm at lower pole. There is right mild hydroureteronephrosis with mild perinephric and reza-ureteric stranding secondary to two calculi together measuring 15 mm in proximal ureter. Right renal cortical calcifications noted. Left ureter is normal in caliber. No adenopathy or fluid collections are seen. No evidence of focal or diffuse bowel wall thickening or evidence of bowel obstruction is seen. The appendix is not visualized - post-operative status. The aorta is normal in caliber. The urinary bladder is normal in contour. Pelvic viscera are grossly unremarkable. Grade 1 anterolisthesis of L4 over L5 noted. No aggressive appearing osseous lesions are identified. Few (3) defects seen in upper anterior abdominal wall in midline, largest defect measuring 3 cm with omental fat as herniating content. Divarication of recti in the lower anterior abdominal wall. IMPRESSION: 1. Right mild hydroureteronephrosis with mild perinephric and reza-ureteric stranding secondary to two proximal ureteric calculi. 2. Multiple left renal calculi. 3. Grade 1 anterolisthesis of L4 over L5. 4. Mild bi-basal atelectasis. Electronically Signed by: Cirilo Addison MD. (01/22/2024 02:51:12 EDT)
[2024-01-22 04:06] VITALS: BP 139/75; PULSE 78
== END 2024-01-22 04:16 | disposition home or self-care (01) ==
LOC: ED 00:44
DX: N13.2 Hydronephrosis with renal and ureteral calculous obstruction (principal); N39.0 Urinary tract infection, site not specified; E80.6 Other disorders of bilirubin metabolism; R30.0 Dysuria; R10.9 Unspecified abdominal pain; R51.9 Headache, unspecified; Z79.899 Other long term (current) drug therapy; Z87.442 Personal history of urinary calculi
CPT/HCPCS: 36000; 36415; 74176; 80053; 81001; 85025; 87077; 87086; 87186; 96365; 99284; J0696; A9270-GY

== ENCOUNTER 2024-02-18 19:54 | Emergency (ER) | payer MEDICARE, OTHER ==
[2024-02-18 20:36] VITALS: RESP 18; TEMP 98.4
[2024-02-18 20:53] LABS: Absolute Neutrophil Ct (ANC) 4.07 x10^3/uL (1.56-6.13); BASOPHIL % 0.5 % (0.1-1.2); Basophil (Absolute #) 0.03 x10^3/uL (0.01-0.08); Eosinophil % 3.8 % (0.7-5.8); Eosinophil (Absolute #) 0.25 x10^3/uL (0.04-0.36); Hematocrit 37.8 % (34.1-44.9); Hemoglobin 12.4 g/dL (11.2-15.7); IMMATURE GRAN # 0.02 x10^3u/L (0.001-0.031); IMMATURE GRAN % 0.3 % (0.001-0.429); Lymphocyte (Absolute #) 1.58 x10^3/uL (1.18-3.74); Lymphocytes % 23.9 % (19.3-51.7); Mean Cell Volume 95.7 fL (79.4-94.8); Mean Corpuscular Hemoglobin 31.4 pg (25.6-32.2); Mean Corpuscular Hgb Concent. 32.8 g/dL (32.2-35.5); Mean Platelet Volume 9.4 fL (9.4-12.3); Monocyte (Absolute #) 0.65 x10^3/uL (0.24-0.86); Monocytes % 9.8 % (4.7-12.5); Neutrophil % 61.7 % (34.0-71.1); Platelet Count 258 x10^3/uL (182-369); Red Blood Count 3.95 x10^6/uL (3.93-5.22); Red Cell Distribution Width 13.5 % (11.7-14.4); White Blood Count 6.6 x10^3/uL (3.98-10.04)
[2024-02-18 21:02] LABS: ALBUMIN 3.8 g/dL (3.5-5.0); ANION GAP 13.2 MEQ/L (5-15); BILIRUBIN,TOTAL 0.7 mg/dL (0.2-1.3); Calcium 9.2 mg/dL (8.4-10.2); Creatinine 1 1.06 mg/dL (0.52-1.04); EST GLOMERULAR FILTRATION RATE 55.1 ML/MIN; Potassium 3.5 mmol/L (3.5-5.1); Total Protein 7.3 g/dL (6.3-8.2)
--- NOTE | 2024-02-18 21:17 | ERPHSYRPT ---
- History of Present Illness Time Seen by Provider: 02/18/24 21:12 Source: patient Exam Limitations: no limitations Patient Subjective Stated Complaint: constant burning in vaginal area, worse with urination, light headed Triage Nursing Assessment: Pt ambulated to room. A&O X 3. Skin color WNL for race. Lung sounds clear throughout. Heart sounds S1, S2 present. No edema. Urine dark yellow and cloudy. Physician History: 73-year-old female presents to emergency department for evaluation of dysuria. Patient recently discharged from hospital for treatment of urosepsis. Patient concerned that she may be redeveloping urosepsis. Patient also reports chronic intermittent lightheadedness. Patient states that she had her lightheadedness checked in the past and was found to have hypokalemia. Patient requesting blood draw to check for hypokalemia. Patient otherwise well. Patient declined pain medication. Portions of this note were created with voice recognition technology. There may be grammatical, spelling, punctuation or sound alike errors Timing/Duration: today Severity: moderate Modifying Factors: Improves With: nothing Associated Symptoms: denies symptoms Allergies/Adverse Reactions: amoxicillin [From Augmentin] Adverse Reaction (Mild, Verified 02/18/24 20:25) Diarrhea clavulanic acid [From Augmentin] Adverse Reaction (Mild, Verified 02/18/24 20:25) Diarrhea VITAMIN K+ INJECTION Allergy (Mild, Uncoded 02/18/24 20:25) Swelling of Joints Home Medications: Fluoxetine HCl 20 mg [Prozac 20 MG] 20 mg PO BID 06/05/13 [History] Gabapentin 300 mg PO HS 04/30/23 [History] Apixaban [Eliquis 2.5 mg Tablet] 2.5 mg PO BID 02/18/24 [History] Levothyroxine Sodium 88 Mcg [Synthroid 88 Mcg] 88 mcg PO 0600 02/18/24 [History] Hx Tetanus, Diphtheria Vaccination/Date Given: No Hx Influenza Vaccination/Date Given: No Hx Pneumococcal Vaccination/Date Given: No Immunizations Up to Date: Yes Travel Risk - International Travel Have you traveled outside of the country in past 3 weeks: No - Emerging Infectious Disease Are you exhibiting symptoms associated with any current EIDs: No Symptoms: Abdominal Pain, Fever - Review of Systems Constitutional: No Symptoms, No Fever, No Chills Eyes: No Symptoms Ears, Nose, & Throat: No Symptoms Respiratory: No Symptoms, No Cough, No Dyspnea Cardiac: No Symptoms, No Chest Pain, No Edema, No Syncope Abdominal/Gastrointestinal: No Symptoms, No Abdominal Pain, No Nausea, No Vomiting, No Diarrhea Genitourinary Symptoms: No Symptoms, No Dysuria Musculoskeletal: No Symptoms, No Back Pain, No Neck Pain Skin: No Symptoms, No Rash Neurological: No Symptoms, No Dizziness, No Focal Weakness, No Sensory Changes Psychological: No Symptoms Endocrine: No Symptoms Hematologic/Lymphatic: No Symptoms Immunological/Allergic: No Symptoms All Other Systems: Reviewed and Negative - Past Medical History Pertinent Past Medical History: Yes Neurological History: Peripheral Neuropathy ENT History: No Pertinent History Cardiac History: No Pertinent History Respiratory History: No Pertinent History Endocrine Medical History: Thyroid Cancer Musculoskeletal History: Arthritis GI Medical History: Hemorrhoids, Irritable Bowel History: Other Psycho-Social History: Depression Female Reproductive Disorders: Fibroids Other Medical History: kidney stones, urosepsis - Past Surgical History Past Surgical History: Yes Neuro Surgical History: No Pertinent History Cardiac: No Pertinent History Respiratory: No Pertinent History Gastrointestinal: Appendectomy, Cholecystectomy, Hemorrhoidectomy, Hernia Repair Genitourinary: No Pertinent History Musculoskeletal: Joint Replacement, Other Female Surgical History: Hysterectomy Other Surgical History: thyroidectomy; carpal tunnel release; bilateral knee replacement - Social History Smoking Status: Never smoker Exposure to second hand smoke: No Drug Use: none Patient Lives Alone: Yes - Social Determinants of Health Will the patient participate in the screening: Yes Do you worry about a steady place to live?: No Do you have any problems with any of the following?: No known problems In the past 12 months,have you had to go without utilities?: No Transportation Issues: No Has anyone in your support network made you feel unsafe?: No Have you or anyone in your house had to go without enough: No - Nursing Vital Signs Nursing Vital Signs: Initial Vital Signs Blood Pressure 100/72 02/18/24 20:30 O2 Sat by Pulse Oximetry 99 02/18/24 20:30 Pain Scale Pain Intensity 8 - Physical Exam General Appearance: no apparent distress, alert Eye Exam: PERRL/EOMI, eyes nml inspection Ears, Nose, Throat Exam: normal ENT inspection, pharynx normal, moist mucous membranes Neck Exam: normal inspection, non-tender, supple, full range of motion Respiratory Exam: normal breath sounds, lungs clear, airway intact, No respiratory distress Cardiovascular Exam: regular rate/rhythm, normal heart sounds, normal peripheral pulses Gastrointestinal/Abdomen Exam: soft, normal bowel sounds, No tenderness, No mass Back Exam: normal inspection, normal range of motion, No CVA tenderness, No vertebral tenderness Extremity Exam: normal inspection, normal range of motion, pelvis stable Neurologic Exam: alert, oriented x 3, cooperative, normal mood/affect, sensation nml, No motor deficits Skin Exam: normal color, warm, dry, No rash Lymphatic Exam: No adenopathy SpO2 Interpretation: normal SpO2: 99 O2 Delivery: Room Air - Course Nursing assessment & vital signs reviewed: Yes Ordered Tests: Active Orders 24 hr Category Date Time Status IV Insertion STAT Care 02/18/24 21:03 Active CBC W DIFF Stat Lab 02/18/24 20:40 Completed CMP Stat Lab 02/18/24 20:40 Completed CULTURE,URINE Stat Lab 02/18/24 20:30 Received TROPONIN Q4H Lab 02/18/24 20:40 Completed TROPONIN Q4H Lab 02/19/24 01:00 Ordered TROPONIN Q4H Lab 02/19/24 05:00 Ordered UA W/RFX UR CULTURE Stat Lab 02/18/24 20:30 Completed Medication Summary Generic Name Dose Route Start Last Admin Trade Name Freq PRN Reason Stop Dose Admin Levofloxacin/Dextrose 500 mg in 100 mls @ 100 mls/hr 02/18/24 21:56 02/18/24 21:59 Levofloxacin 500mg/100ml D5w IV 02/18/24 22:55 100 ml/hr STAT STA 100 mls/hr Administration Discontinued Medications Generic Name Dose Route Start Last Admin Trade Name Freq PRN Reason Stop Dose Admin Levofloxacin/Dextrose Confirm 02/18/24 21:57 Levofloxacin 500mg/100ml D5w Administered 02/18/24 21:58 Dose 500 mg in 100 mls @ ud IV .[facility] [facility] Lab/Rad Data: Laboratory Result Diagrams 02/18/24 20:40 02/18/24 20:40 Laboratory Results 02/18/24 02/18/24 02/18/24 Range/Units 20:40 20:40 20:40 WBC 6.6 (3.98-10.04) x10^3/uL RBC 3.95 (3.93-5.22) x10^6/uL Hgb 12.4 (11.2-15.7) g/dL Hct 37.8 (34.1-44.9) % MCV 95.7 H (79.4-94.8) fL MCH 31.4 (25.6-32.2) pg MCHC 32.8 (32.2-35.5) g/dL RDW 13.5 (11.7-14.4) % Plt Count 258 (182-369) x10^3/uL MPV 9.4 (9.4-12.3) fL Gran % 61.7 (34.0-71.1) % Immature Gran % (Auto) 0.3 (0.001-0.429) % Nucleat RBC Rel Count 0.0 (0.00-0.2) % Eos # (Auto) 0.25 (0.04-0.36) x10^3/uL Immature Gran # (Auto) 0.02 (0.001-0.031) x10^3u/L Absolute Lymphs (auto) 1.58 (1.18-3.74) x10^3/uL Absolute Monos (auto) 0.65 (0.24-0.86) x10^3/uL Absolute Nucleated RBC 0.00 (0.00-0.012) x10^3u/L Lymphocytes % 23.9 (19.3-51.7) % Monocytes % 9.8 (4.7-12.5) % Eosinophils % 3.8 (0.7-5.8) % Basophils % 0.5 (0.1-1.2) % Absolute Granulocytes 4.07 (1.56-6.13) x10^3/uL Basophils # 0.03 (0.01-0.08) x10^3/uL Sodium 140 (135-145) mmol/L Potassium 3.5 (3.5-5.1) mmol/L Chloride 106 (98-107) mmol/L Carbon Dioxide 24 (22-30) mmol/L Anion Gap 13.2 (5-15) MEQ/L BUN 19 H (7-17) mg/dL Creatinine 1.06 H (0.52-1.04) mg/dL Estimated GFR 55.1 ML/MIN Glucose 128 H (74-106) mg/dL Calcium 9.2 (8.4-10.2) mg/dL Total Bilirubin 0.70 (0.2-1.3) mg/dL AST 28 (14-36) U/L ALT 22 (0-35) U/L Alkaline Phosphatase 96 (38-126) U/L Troponin I < 0.012 (0.000-0.033) ng/mL Serum Total Protein 7.3 (6.3-8.2) g/dL Albumin 3.8 (3.5-5.0) g/dL Urine Color (Yellow) Urine Appearance (Clear) Urine pH (4.6-8.0) Ur Specific [place] (1.005-1.030) Urine Protein (Negative) Urine Glucose (UA) (Negative) mg/dL Urine Ketones (Negative) Urine Blood (Negative) Urine Nitrite (Negative) Urine Bilirubin (Negative) Urine Urobilinogen (0.2) mg/dL Ur Leukocyte Esterase (Negative) U Hyaline Cast (Auto) (0-2) /LPF Urine Microscopic RBC (0-5) /HPF Urine Microscopic WBC (0-5) /HPF Ur Epithelial Cells (None Seen) /HPF Urine Bacteria (None Seen) /HPF Urine Culture Reflexed (NO) 02/18/24 Range/Units 20:30 WBC (3.98-10.04) x10^3/uL RBC (3.93-5.22) x10^6/uL Hgb (11.2-15.7) g/dL Hct (34.1-44.9) % MCV (79.4-94.8) fL MCH (25.6-32.2) pg MCHC (32.2-35.5) g/dL RDW (11.7-14.4) % Plt Count (182-369) x10^3/uL MPV (9.4-12.3) fL Gran % (34.0-71.1) % Immature Gran % (Auto) (0.001-0.429) % Nucleat RBC Rel Count (0.00-0.2) % Eos # (Auto) (0.04-0.36) x10^3/uL Immature Gran # (Auto) (0.001-0.031) x10^3u/L Absolute Lymphs (auto) (1.18-3.74) x10^3/uL Absolute Monos (auto) (0.24-0.86) x10^3/uL Absolute Nucleated RBC (0.00-0.012) x10^3u/L Lymphocytes % (19.3-51.7) % Monocytes % (4.7-12.5) % Eosinophils % (0.7-5.8) % Basophils % (0.1-1.2) % Absolute Granulocytes (1.56-6.13) x10^3/uL Basophils # (0.01-0.08) x10^3/uL Sodium (135-145) mmol/L Potassium (3.5-5.1) mmol/L Chloride (98-107) mmol/L Carbon Dioxide (22-30) mmol/L Anion Gap (5-15) MEQ/L BUN (7-17) mg/dL Creatinine (0.52-1.04) mg/dL Estimated GFR ML/MIN Glucose (74-106) mg/dL Calcium (8.4-10.2) mg/dL Total Bilirubin (0.2-1.3) mg/dL AST (14-36) U/L ALT (0-35) U/L Alkaline Phosphatase (38-126) U/L Troponin I (0.000-0.033) ng/mL Serum Total Protein (6.3-8.2) g/dL Albumin (3.5-5.0) g/dL Urine Color Yellow (Yellow) Urine Appearance Turbid A (Clear) Urine pH 5.5 (4.6-8.0) Ur Specific [place] 1.015 (1.005-1.030) Urine Protein 100 A (Negative) Urine Glucose (UA) Negative (Negative) mg/dL Urine Ketones Negative (Negative) Urine Blood Large A (Negative) Urine Nitrite Positive A (Negative) Urine Bilirubin Negative (Negative) Urine Urobilinogen 1.0 A (0.2) mg/dL Ur Leukocyte Esterase Large A (Negative) U Hyaline Cast (Auto) 3-5 A (0-2) /LPF Urine Microscopic RBC >100 A (0-5) /HPF Urine Microscopic WBC >100 A (0-5) /HPF Ur Epithelial Cells Rare (None Seen) /HPF Urine Bacteria Many A (None Seen) /HPF Urine Culture Reflexed YES (NO) - Progress Progress: improved Progress Note: 73-year-old female presents to emergency department for evaluation of urinary symptomology. Physical exam nonremarkable. Patient also requested to have her potassium checked. Potassium 3.5. Urinalysis reveals significant urinary tract infection. Patient is allergic to penicillin. Levaquin administered. A prescription for Levaquin forwarded to patient's pharmacy. Patient agrees to follow-up with her primary care doctor within 48 hours for reevaluation. Portions of this note were created with voice recognition technology. There may be grammatical, spelling, punctuation or sound alike errors Problem addressed is moderate acute complicated. No critical care time. Complex of data reviewed and analyzed is moderate. Test ordered test reviewed results analyzed and correlated clinically with history and physical exam. Risk of complication and or risk of morbidity/mortality of patient management is moderate. A prescription for Levaquin forwarded to patient's pharmacy. Vital stable. Time spent to discharge patient approximately 20 minutes. Plan of care established for shared decision making. No social determinants of health present to impede follow-up. Portions of this note were created with voice recognition technology. There may be grammatical, spelling, punctuation or sound alike errors 02/18/24 22:01 Counseled pt/family regarding: lab results, diagnosis, need for follow-up - Departure Departure Disposition: Home Clinical Impression: Urinary tract infection Condition: Stable Critical Care Time: No Referrals: HANK MONTESINOS [Primary Care Provider] - Follow up/PCP as directed Additional Instructions: Discharge/Care Plan PORTILLO OLIVAS was seen on 02/18/24 in the Emergency Room. The patient was counseled regarding Diagnosis,Lab results, Imaging studies, need for follow up and when to return to the Emergency Room. Prescriptions given: Discharge Note I have spoken with the patient and/or caregivers. I have explained the patient's condition, diagnosis and treatment plan based on the information available to me at this time. I have answered the patient's and/or caregiver's questions and addressed any concerns. The patient and/or caregivers have as good understanding of the patient's diagnosis, condition and treatment plan as can be expected at this point. The vital signs have been stable. The patient's condition is stable and appropriate for discharge from the emergency department. The patient will pursue further outpatient evaluation with the primary care physician or other designated or consulting physician as outlined in the discharge instructions. The patient and/or caregivers are agreeable to this plan of care and follow-up instructions have been explained in detail. The patient and/or caregivers have received these instruction. The patient/and or caregivers are aware that any significant change in condition or worsening of symptoms should prompt an immediate return to this or the closest emergency department or call 911. Prescriptions: Levofloxacin [Levaquin 500 MG Tablet] 500 mg PO DAILY #7 tablet
[2024-02-18 21:22] LABS: ADD URINE CULTURE? YES (NO); Appearance Turbid (Clear); Bacteria Many /HPF (None Seen); Bilirubin Negative (Negative); Blood Large (Negative); Epithelial Cells Rare /HPF (None Seen); Glucose, Urine Negative (Negative); Ketones Negative (Negative); Leukocyte Esterase Large (Negative); Nitrite Positive (Negative); Ph 5.5 (4.6-8.0); Protein,Urine Dip 100 (Negative); RBC >100 /HPF (0-5); Specific Gravity 1.015 (1.005-1.030); WBC >100 /HPF (0-5)
[2024-02-18] MEDS ORDERED: Levofloxacin 500MG/100ML D5W 500 MG/100 ML BAG IV ONE (21:57)
[2024-02-18] MEDS: Levofloxacin 500MG/100ML D5W 500 MG/100 ML BAG IV STA (21:59)
[2024-02-18 22:40] VITALS: PULSE 72
[2024-02-18 23:03] VITALS: BP 144/76; O2SAT 99
== END 2024-02-18 23:09 | disposition home or self-care (01) ==
LOC: ED 19:54
DX: N39.0 Urinary tract infection, site not specified (principal); R30.0 Dysuria; R42 Dizziness and giddiness; Z79.01 Long term (current) use of anticoagulants; Z79.899 Other long term (current) drug therapy
CPT/HCPCS: 36000; 36415; 80053; 81001; 84484; 85025; 87086; 96365; 99284; J1956